=== PATIENT | female | born 1935 | race Caucasian/White ===

== ENCOUNTER 2018-05-22 19:25 | Inpatient (IN) | payer MEDICARE, OTHER ==
[~2018-05-22] VITALS: Ht 157.5 cm; Wt 73.0 kg
[2018-05-22] VITALS (11 sets, daily range): BP systolic 148–179; BP diastolic 50–66
[2018-05-22 19:49] LABS: BASOPHILS # (AUTO) 0.1 (0.0-0.1); BASOPHILS % 0.5 % (0.0-1.0); EOSINOPHILS # (AUTO) 0.1 (0.0-0.4); EOSINOPHILS % 0.5 % (0.0-6.0); HEMATOCRIT 42.9 % (34.2-44.1); HEMOGLOBIN 13.9 g/dL (12.0-16.0); LYMPHOCYTES # (AUTO) 3.4 (1.0-3.2); LYMPHOCYTES % 23.2 % (18.0-39.1); MEAN CORPUSCULAR HEMOGLOBIN 29.1 pg (28-32); MEAN CORPUSCULAR HGB CONC 32.4 g/dL (31-35); MEAN CORPUSCULAR VOLUME 89.7 fL (81-99); MONOCYTES # (AUTO) 0.6 (0.2-0.8); MONOCYTES % 4.1 % (4.4-11.3); NEUTROPHILS # (AUTO) 10.4 (2.1-6.9); NEUTROPHILS % 70.5 % (38.7-80.0); PLATELET COUNT 225 x10e3/uL (140-360); RED BLOOD COUNT 4.78 x10e6/uL (3.6-5.1)
[2018-05-22 20:02] LABS: INR 0.96; PARTIAL THROMBOPLASTIN TIME 25.2 seconds (23.8-35.5); PROTHROMBIN TIME 13.3 seconds (11.9-14.5)
[2018-05-22 20:04] LABS: BILIRUBIN,URINE NEGATIVE (NEGATIVE); CLARITY,URINE SL CLOUDY (CLEAR); COLOR,URINE YELLOW (YELLOW); KETONES,URINE NEGATIVE (NEGATIVE); LEUKOCYTE ESTERASE ,URINE 1+ (NEGATIVE); NITRITE,URINE NEGATIVE (NEGATIVE); PROTEIN,URINE DIPSTICK 1+ (NEGATIVE); URINE UROBILINOGEN 0.2 mg/dL (0.2 - 1)
[2018-05-22] MEDS ORDERED: MECLIZINE HCL25 MG PO (20:06)
[2018-05-22] MEDS ORDERED: HYDRALAZINE HCL25 MG PO (20:06)
[2018-05-22] MEDS ORDERED: LEVOTHYROXINE50 MCG PO (20:07)
[2018-05-22] MEDS ORDERED: GLIPIZIDE ER5 MG PO (20:07)
[2018-05-22] MEDS ORDERED: METOPROLOL SUCC50 MG PO (20:08)
[2018-05-22] MEDS ORDERED: METFORMIN HCL500 M2 PO (20:08)
[2018-05-22] MEDS ORDERED: CORICIDIN HBP1 EAC3 PO (20:09)
[2018-05-22] MEDS ORDERED: LANTUS 3ML100 UNITS/ SC (20:09)
--- NOTE | 2018-05-22 20:10 | Diagnostic Imaging Report ---
EXAMINATION: CHEST SINGLE (PORTABLE) COMPARISON: None INDICATION: ^sob ^[id number] ^1948 ^Y DISCUSSION: Frontal view of the chest obtained at 1946 hours. HEART AND MEDIASTINUM: The heart is mildly enlarged. The aorta is ectatic. Pulmonary vascular markings are prominent and indistinct LINES: None. LUNGS: Diffuse interstitial prominence. Patchy bibasilar airspace opacities PLEURA: There is blunting of the right lateral costophrenic angle and prominence of the minor fissure, either atelectasis or fluid BONES AND SOFT TISSUES: Degenerative changes of the spine. No focal osseous lesions. The soft tissues are normal. IMPRESSION: Cardiomegaly and CHF. Bibasilar airspace opacities may represent atelectasis or pneumonia. Small right pleural effusion. Signed by: Dr. Beulah Valadez MD on 05/22/2018 8:07 PM
[2018-05-22 20:11] LABS: ALBUMIN 3.6 g/dL (3.5-5.0); ALBUMIN/GLOBULIN RATIO 0.9 (0.8-2.0); ANION GAP 18.4 mmol/L (8-16); CALCIUM 9.3 mg/dL (8.4-10.2); CREATININE, SERUM 1.14 mg/dL (0.57-1.11); POTASSIUM 4.4 mmol/L (3.5-5.1)
[2018-05-22 20:14] LABS: BACTERIA,URINE MODERATE /HPF; EPITHELIAL CELLS,URINE MODERATE /LPF; RENAL EPITHELIAL CELLS,URINE FEW
[2018-05-22 20:17] LABS: CREATINE KINASE MB 2.7 ng/mL (0-5.0)
[2018-05-22] MEDS ORDERED: FUROSEMIDE INJ 10 MG/ML 4 ML VIAL IV NR (20:30)
[2018-05-22] MEDS ORDERED: NITROGLYCERIN 2% OINT 1 GM PKT TOP ONE (20:30)
[2018-05-22] MEDS: CEFTRIAXONE SOD 1 GM/NS 50 ML 50 ML IV SCH (20:52)
[2018-05-22] MEDS ORDERED: HYDRALAZINE HCL 20 MG/ML VIAL IV PRN (21:00)
[2018-05-22] MEDS ORDERED: DEXTROSE 50% SYRINGE 50 ML IV PRN (21:00)
[2018-05-22] MEDS ORDERED: SODIUM CHLORIDE FLUSH 10 ML SYR INJ PRN (21:00)
--- OUTSIDE RECORDS SUMMARY | 2018-05-22 21:05 | XMS REPORT ---
Author Author [facility] Address Unknown Phone Unavailable Care Team Providers Care Food Processing Scientist Name Role Phone Marco Antonio FORBES Unavailable Unavailable Payers Payer Name Policy Type Policy Number Effective Date Expiration Date Problems This patient has no known problems. Allergies, Adverse Reactions, Alerts Allergy Name Allergy Type Status Severity Reaction(s) Onset Date Inactive Date Treating Clinician Comments Penicillins DA Active [place] 2018-05-06 00:00:00 FLU VACCINE DA Active KS 2018-05-06 00:00:00 No Known Allergies DA Active U 2017-09-07 00:00:00 Medications This patient has no known medications. Results Test Description Test Time Test Comments Text Results Atomic Results Result Comments CHEST SINGLE (PORTABLE) 2018-05-22 20:06:00 [facility] [address], [place] [address] Patient Name: BRADFORD VAN MR #: [id number] : 1935 Age/Sex: 82/F Req #: [id number] Adm Physician: Ordered by: JENNIFFER FORBES MD Report #: [id number] Location: ER Room/Bed: Procedure: [id number] DX/CHEST SINGLE (PORTABLE) Exam Date: 05/22/18 Exam Time: 1949 REPORT STATUS: Signed EXAMINATION: CHEST SINGLE (PORTABLE) COMPARISON: None INDICATION: sob [id number] 1947 Y DISCUSSION: Frontal view of the chest obtained at 1946 hours. HEART AND MEDIASTINUM: The heart is mildly enlarged. The aorta is ectatic. Pulmonary vascular markings are prominent and indistinct LINES: None. LUNGS: Diffuse interstitial prominence. Patchy bibasilar airspace opacities PLEURA: There is blunting of the right lateral costophrenic angle and prominence of the minor fissure, either atelectasis or fluid BONES AND SOFT TISSUES: Degenerative changes of the spine. No focal osseous lesions. The soft tissues are normal. IMPRESSION: Cardiomegaly and CHF. Bibasilar airspace opacities may represent atelectasis or pneumonia. Small right pleural effusion. Signed by: Dr. Sarahi Valadez MD on 05/22/2018 8:07 PM Dictated By: SARAHI VALADEZ MD 06 Transcribed By: NADIRA on 05/22/182006 COPY TO: JENNIFFER FORBES MD GLUBED 2018-05-07 12:39:00 GLUBED (test code=GLUBED) 262 MG/DL 70-110 Performed by certified raymond mill operator at [facility] [id number] 08:41:00* Test Item Value Reference Range Comments GLUBED (test code=GLUBED) 183 MG/DL 70-110 Performed by certified raymond mill operator at [facility] CBC W/AUTO [id number] 08:33:00* Test Item Value Reference Range Comments WHITE BLOOD CELL (test code=WBC) 7.00 x10 3/uL 4.5-11.0 RED BLOOD CELL (test code=RBC) 3.94 x10 6/uL 3.54-5.02 HEMOGLOBIN (test code=HGB) 11.8 g/dL 11.0-15.0 HEMATOCRIT (test code=HCT) 34.4 % 33.0-45.0 MEAN CELL VOLUME (test code=MCV) 87.3 fL 81.0-99.0 MEAN CELL HGB (test code=MCH) 29.9 pg 27.0-33.0 MEAN CELL HGB CONCETRATION (test code=MCHC) 34.3 g/dL 33.0-37.0 RED CELL DISTRIBUTION WIDTH CV (test code=RDW) 12.9 % 11.5-14.5 RED CELL DISTRIBUTION WIDTH SD (test code=RDW-SD) 40.5 fL 37.0-54.0 PLATELET COUNT (test code=PLT) 149 x10 3/uL 150-400 MEAN PLATELET VOLUME (test code=MPV) 11.3 fL 7.0-9.0 NEUTROPHIL % (test code=NT%) 61.7 % 56.0-77.0 IMMATURE GRANULOCYTE % (test code=IG%) 1.3 % 0.0-2.0 LYMPHOCYTE % (test code=LY%) 28.6 % 14.0-32.0 MONOCYTE % (test code=MO%) 6.1 % 4.8-9.0 EOSINOPHIL % (test code=EO%) 1.9 % 0.3-3.7 BASOPHIL % (test code=BA%) 0.4 % 0.0-2.0 NUCLEATED RBC % (test code=NRBC%) 0.0 % 0-0 NEUTROPHIL # (test code=NT#) 4.32 x10 3/uL 2.0-7.6 IMMATURE GRANULOCYTE # (test code=IG#) 0.09 x10 3/uL 0.00-0.03 LYMPHOCYTE # (test code=LY#) 2.00 x10 3/uL 1.0-3.8 MONOCYTE # (test code=MO#) 0.43 x10 3/uL 0.1-0.8 EOSINOPHIL # (test code=EO#) 0.13 x10 3/uL 0.0-0.2 BASOPHIL # (test code=BA#) 0.03 x10 3/uL 0.0-0.2 NUCLEATED RBC # (test code=NRBC#) 0.00 x10 3/uL 0.0-0.1 MANUAL DIFF REQUIRED (test code=MDIFF) NO BASIC METABOLIC [id number] 08:16:00* Test Item Value Reference Range Comments SODIUM (test code=NA) 136 mEq/L 134-147 POTASSIUM (test code=K) 3.0 mEq/L 3.4-5.0 CHLORIDE (test code=CL) 101 mEq/L 100-108 CARBON DIOXIDE (test code=CO2) 26 mEq/L 21-33 ANION GAP (test code=GAP) 12 0-20 GLUCOSE (test code=GLU) 161 mg/dL 70-110 BLOOD UREA NITROGEN (test code=BUN) 25 mg/dL 7-18 GLOMERULAR FILTRATION RATE (test code=GFR) 60.2 70-80 Units of measure=ml/min/1.73 m2 CREATININE (test code=CREAT) 0.9 mg/dL 0.6-1.3 CALCIUM (test code=CA) 8.4 mg/dL 8.0-10.5 THYROID STIMULATING [id number] 08:16:00* Test Item Value Reference Range Comments THYROID STIMULATING HORMONE (test code=TSH) 3.32 0.42-5.47 Results in pat-International Units/mL [id number] 08:16:00* Test Item Value Reference Range Comments TROPONIN-I (test code=TROPI) 0.033 ng/mL 0.000-0.045 Negative: <=0.045 Positive: >=0.046 Correlation with serial results, other cardiac markers andclinical findings is necessary to determine the clinicalsignificance of this result. Results using different methodologies should not be comparedto one another as quantitative results may vary by method. [id number] 02:41:00* Test Item Value Reference Range Comments TROPONIN-I (test code=TROPI) 0.053 ng/mL 0.000-0.045 Negative: <=0.045 Positive: >=0.046 Correlation with serial results, other cardiac markers andclinical findings is necessary to determine the clinicalsignificance of this result. Results using different methodologies should not be comparedto one another as quantitative results may vary by method. COMMENTS: 3 troponins total (including troponin done in ED)LIPOPROTEIN LDL 2018-05-06 21:48:00* Test Item Value Reference Range Comments LIPOPROTEIN LDL (test code=LDL) 95 mg/dL 0-100 <100 [id number] NEAR OPTIMAL/ABOVE [id number] HIGH>OF=080 VERY HIGH*Guidelines provided by the National Cholesterol EducationProgram Adult Treatment Panel III [id number] 21:26:00* Test Item Value Reference Range Comments TROPONIN-I (test code=TROPI) 0.046 ng/mL 0.000-0.045 Negative: <=0.045 Positive: >=0.046 Correlation with serial results, other cardiac markers andclinical findings is necessary to determine the clinicalsignificance of this result. Results using different methodologies should not be comparedto one another as quantitative results may vary by method. COMMENTS: 3 troponins total (including troponin done in ED)[id number] 21:23:00* Test Item Value Reference Range Comments GLUBED (test code=GLUBED) 114 MG/DL 70-110 Performed by certified raymond mill operator at [facility] B-TYPE NATRIURETIC [id number] 19:03:00* Test Item Value Reference Range Comments B-TYPE NATRIURETIC PEPTIDE (test code=BNP) 13.9 PG/ML 0-100 BASIC METABOLIC [id number] 18:18:00* Test Item Value Reference Range Comments SODIUM (test code=NA) 127 mEq/L 134-147 POTASSIUM (test code=K) 3.7 mEq/L 3.4-5.0 CHLORIDE (test code=CL) 92 mEq/L 100-108 CARBON DIOXIDE (test code=CO2) 24 mEq/L 21-33 ANION GAP (test code=GAP) 15 0-20 GLUCOSE (test code=GLU) 305 mg/dL 70-110 BLOOD UREA NITROGEN (test code=BUN) 28 mg/dL 7-18 GLOMERULAR FILTRATION RATE (test code=GFR) 39.4 70-80 Units of measure=ml/min/1.73 m2 CREATININE (test code=CREAT) 1.3 mg/dL 0.6-1.3 CALCIUM (test code=CA) 9.0 mg/dL 8.0-10.5 CREATINE KINASE (CK)2018-05-06 18:18:00* Test Item Value Reference Range Comments CREATINE KINASE (CK) (test code=CK) 133 35-232 Result is in INTERNATIONAL UNITS/LITER THYROID STIMULATING [id number] 18:18:00* Test Item Value Reference Range Comments THYROID STIMULATING HORMONE (test code=TSH) 2.55 0.42-5.47 Results in pat-International Units/mL [id number] 18:18:00* Test Item Value Reference Range Comments TROPONIN-I (test code=TROPI) 0.041 ng/mL 0.000-0.045 Negative: <=0.045 Positive: >=0.046 Correlation with serial results, other cardiac markers andclinical findings is necessary to determine the clinicalsignificance of this result. Results using different methodologies should not be comparedto one another as quantitative results may vary by method. BASIC METABOLIC [id number] 18:13:00* Test Item Value Reference Range Comments SODIUM (test code=NA) 127 mEq/L 134-147 POTASSIUM (test code=K) 3.7 mEq/L 3.4-5.0 CHLORIDE (test code=CL) 92 mEq/L 100-108 CARBON DIOXIDE (test code=CO2) 24 mEq/L 21-33 ANION GAP (test code=GAP) 15 0-20 GLUCOSE (test code=GLU) 305 mg/dL 70-110 BLOOD UREA NITROGEN (test code=BUN) 28 mg/dL 7-18 GLOMERULAR FILTRATION RATE (test code=GFR) 39.4 70-80 Units of measure=ml/min/1.73 m2 CREATININE (test code=CREAT) 1.3 mg/dL 0.6-1.3 CALCIUM (test code=CA) 9.0 mg/dL 8.0-10.5 CREATINE KINASE (CK)2018-05-06 18:13:00* Test Item Value Reference Range Comments CREATINE KINASE (CK) (test code=CK) 133 35-232 Result is in INTERNATIONAL UNITS/LITER THYROID STIMULATING [id number] 18:13:00* Test Item Value Reference Range Comments THYROID STIMULATING HORMONE (test code=TSH) 0.42-5.47 [id number] 18:13:00* Test Item Value Reference Range Comments TROPONIN-I (test code=TROPI) 0.041 ng/mL 0.000-0.045 Negative: <=0.045 Positive: >=0.046 Correlation with serial results, other cardiac markers andclinical findings is necessary to determine the clinicalsignificance of this result. Results using different methodologies should not be comparedto one another as quantitative results may vary by method. URINALYSIS [id number] 18:11:00* Test Item Value Reference Range Comments UA COLOR (test code=COLU) COLORLESS YEL/STRAW UA APPEARANCE (test code=APPU) CLEAR CLEAR UA GLUCOSE DIPSTICK (test code=DGLUU) 3+ NEGATIVE UA BILIRUBIN DIPSTICK (test code=BILU) NEGATIVE NEGATIVE UA KETONE DIPSTICK (test code=KETU) NEGATIVE NEGATIVE UA SPECIFIC GRAVITY (test code=SGU) 1.003 1.005-1.030 UA BLOOD DIPSTICK (test code=JESUS) NEGATIVE NEGATIVE UA PH DIPSTICK (test code=MATTHEW) 7.0 5.0-7.0 UA PROTEIN DIPSTICK (test code=PROU) NEGATIVE NEGATIVE UA UROBILINIOGEN DIPSTICK (test code=URO) 0.2 mg/dL 0.2-1.0 UA NITRITE DIPSTICK (test code=KINSEY) NEGATIVE NEGATIVE UA LEUKOCYTE ESTERASE DIPSTICK (test code=LEUU) TRACE NEGATIVE UA WBC (test code=WBCU) 4-9 WBC/HPF 0-3 UA RBC (test code=RBCU) 0-3 RBC/HPF 0-3 UA BACTERIA (test code=BACU) NONE SEEN /HPF NONE SEEN UA SQUAMOUS CELLS (test code=SQU) 0-5 /HPF NONE SEEN COMMENTS: Clean CatchPROTHROMBIN [id number] 18:11:00* Test Item Value Reference Range Comments PROTHROMBIN TIME PATIENT (test code=PTP) 10.7 SECONDS 9.3-12.9 INTERNATIONAL NORMAL RATIO (test code=INR) 1.0 0.8-1.2 TARGET INR BY INDICATION Indication INR1. Prophylaxis of venous thrombosis 2.0 - 3.0 (orthopedic surgery), Prophylaxis of venous thrombosis (other than high-risk surgery), Treatment of Deep Vein Thrombosis/Pulmonary Embolism, Prevention of systemic embolism - Tissue heart valves, Acute Myocardial Infarction (to prevent systemic embolism), Valvular heart disease, Atrial Fibrillation, Bileaflet mechanical valve in aortic position.2. Mechanical prosthetic valves (high risk), 2.5 - 3.5 Presence of Lupus Anticoagulant or Antiphospholipid Antibodies, Prevention of systemic embolism - Acute Myocardial Infarction (to prevent recurrent infarct). THROMBOPLASTIN TIME [id number] 18:11:00* Test Item Value Reference Range Comments THROMBOPLASTIN TIME PARTIAL (test code=PTT) 29.2 Seconds 25.0-39.5 Therapeutic Range: 61.8-83.8 Sec Effective 03/25/2013 DRUGS OF ABUSE SCREEN [id number] 18:09:00* Test Item Value Reference Range Comments URN COCAINE (test code=COCAURN) NEGATIVE NEGATIVE URN CANNABINOIDS (test code=CANNABURN) NEGATIVE NEGATIVE URN AMPHETAMINE (test code=AMPHETURN) NEGATIVE NEGATIVE URN BARBITURATE (test code=BARBITURN) NEGATIVE NEGATIVE URN BENZODIAZEPINE (test code=BENZOURN) NEGATIVE NEGATIVE Cut-off value:200 ng/mL URN OPIATES (test code=OPIATURN) NEGATIVE NEGATIVE Cut-off value:2000 ng/mL URN PHENCYCLIDINE (PCP) (test code=PHENCURN) NEGATIVE NEGATIVE Cutoffs:Barbiturates 200 ng/mLBenzodiazepines 200 ng/mLTHC Cannabinoids 50 ng/mLOpiates(Morphine) 2000 ng/mLAmphetamine 1000 ng/mLCocaine 300 ng/mLPCP phencyclidine 25 ng/mL Unconfirmed screening results shouldnot be used for non-medical purposes. CBC W/AUTO [id number] 17:58:00* Test Item Value Reference Range Comments WHITE BLOOD CELL (test code=WBC) 8.54 x10 3/uL 4.5-11.0 RED BLOOD CELL (test code=RBC) 4.70 x10 6/uL 3.54-5.02 HEMOGLOBIN (test code=HGB) 14.0 g/dL 11.0-15.0 HEMATOCRIT (test code=HCT) 41.7 % 33.0-45.0 MEAN CELL VOLUME (test code=MCV) 88.7 fL 81.0-99.0 MEAN CELL HGB (test code=MCH) 29.8 pg 27.0-33.0 MEAN CELL HGB CONCETRATION (test code=MCHC) 33.6 g/dL 33.0-37.0 RED CELL DISTRIBUTION WIDTH CV (test code=RDW) 13.0 % 11.5-14.5 RED CELL DISTRIBUTION WIDTH SD (test code=RDW-SD) 42.1 fL 37.0-54.0 PLATELET COUNT (test code=PLT) 163 x10 3/uL 150-400 MEAN PLATELET VOLUME (test code=MPV) 11.4 fL 7.0-9.0 NEUTROPHIL % (test code=NT%) 70.3 % 56.0-77.0 IMMATURE GRANULOCYTE % (test code=IG%) 1.1 % 0.0-2.0 LYMPHOCYTE % (test code=LY%) 22.2 % 14.0-32.0 MONOCYTE % (test code=MO%) 4.8 % 4.8-9.0 EOSINOPHIL % (test code=EO%) 1.2 % 0.3-3.7 BASOPHIL % (test code=BA%) 0.4 % 0.0-2.0 NUCLEATED RBC % (test code=NRBC%) 0.4 % 0-0 NEUTROPHIL # (test code=NT#) 6.01 x10 3/uL 2.0-7.6 IMMATURE GRANULOCYTE # (test code=IG#) 0.09 x10 3/uL 0.00-0.03 LYMPHOCYTE # (test code=LY#) 1.90 x10 3/uL 1.0-3.8 MONOCYTE # (test code=MO#) 0.41 x10 3/uL 0.1-0.8 EOSINOPHIL # (test code=EO#) 0.10 x10 3/uL 0.0-0.2 BASOPHIL # (test code=BA#) 0.03 x10 3/uL 0.0-0.2 NUCLEATED RBC # (test code=NRBC#) 0.03 x10 3/uL 0.0-0.1 MANUAL DIFF REQUIRED (test code=MDIFF) NO - CT HEAD/BRAIN W/O [id number] 17:01:00 Name: BRADFORD VAN [facility] : 1935 Age/S: 82 / F [address] [place] [address] Unit #: [id number] Loc: [place] [address] Phys: Leroy Dang DO Acct: [id number] Dis Date: Status: REG ER PHONE #: [phone] Exam Date: 05/06/2018 1642 FAX #: [phone] Reason: Syncope EXAMS: CPT CODE: [id number] CT HEAD/BRAIN W/O CONT [address] HEAD INDICATION: Syncope. TECHNIQUE: Unenhanced CT was performed from the skull vertex to the foramen magnum with axial, coronal and sagittal reconstructions. Radiation dose length product 420 mGy-cm. COMPARISONS: CT brain 01/23/2018 FINDINGS: The paranasal sinuses are clear as visualized. The mastoid air cells and middle ears appear clear as visualized. There is a moderate burden of atherosclerotic vascular calcification of the intracranial arteries. There is no acute depressed skull fracture. There is a stable mild burden of chronic small vessel ischemic disease hypodense lesions in the frontoparietal white matter. There is moderate generalized brain parenchymal volume loss. The cerebral ventricles are normal caliber. There is no cerebral mass effect, midline shift, intracranial hemorrhage or acute large vessel territory cerebral cortical edema. IMPRESSION: 1. There is no acute intracranial process. 2. There is a stable mild burden of chronic small vessel ischemic disease hypodense lesions in the frontoparietal white matter. There is stable moderate generalized brain parenchymal volume loss. Electronically Signed by Skye Bermeo on 05/06 at 1701 Reported and signed by: Ariel Bermeo D.O. CC: Leroy Dang DO; Blue Sánchez MD [place] hnologist:RT Hitesh(R)(CT) CTDI: DLP: Trnscb Date/T iliana: 05/06/2018 (1701) [email or web address] Orig Print D/T: S: 05/06 (7096) CTDI: DLP: PAGE 1 Si gned Report - XR CHEST 1 [id number] 16:26:00 FAX: Leroy Pérez DO [phone] [place]: St: REG FAX: Blue Montano MD [phone] Name: BRADFORD VAN [facility] : 1935 Age/S: 82/F [address] [place] [address] Blvd Unit #: [id number] Loc: [place] [address] Phys: Leroy Dang DO Acct: [id number] Dis Date: Status: REG ER PHONE #: [phone] Exam Date: 05/06/2018 1620 FAX #: [phone] Reason: near syncope EXAMS: CPT CODE: [id number] XR CHEST 1 V 95028 SINGLE VIEW RADIOGRAPH CHEST INDICATION: near syn cope. TECHNIQUE: A single view frontal radiograph of the chest was obtained. COMPARISONS: Chest x-ray 01/23/2018 FINDI NGS: There is no acute osseous fracture or dislocation. There is n o subdiaphragmatic free gas. The cardiomediastinal size and contour are normal. There is mild atherosclerotic vascular calcification o f the aorta. There is no pneumothorax, pleural effusion or organiz ed pneumonia. There is a calcified granuloma in the medial right lung bas e. IMPRESSION: 1. No acute cardiopulmonary pr ocess. at 7330 Re ported and signed by: Ariel Bermeo D.O. CC: Leroy Dang DO; Blue Sánchez MD Technologist: RT Bhavya(R) Trnscrd Date/Time/By: 05/06/2018 (0319) : By: [email or web address] Orig Print D/T: S: 05/06/2018 (3535) PAGE 1 Signed Report
[2018-05-22] MEDS ORDERED: MECLIZINE HCL 12.5 MG TAB PO SCH (21:15)
[2018-05-22] MEDS ORDERED: ASPIRIN 81 MG CHEW TAB PO ONE (21:15)
[2018-05-22] MEDS: INSULIN REGULAR, HUMAN 100 UNIT/1 ML 3ML VIAL SQ SCH (22:15)
[2018-05-23] VITALS (45 sets, daily range): BP systolic 101–208; BP diastolic 40–134
[2018-05-23 04:50] LABS: BASOPHILS % 0.3 % (0.0-1.0); EOSINOPHILS % 0.3 % (0.0-6.0); HEMATOCRIT 36.5 % (34.2-44.1); HEMOGLOBIN 12.3 g/dL (12.0-16.0); LYMPHOCYTES # (AUTO) 2.2 (1.0-3.2); MEAN CORPUSCULAR HEMOGLOBIN 29.7 pg (28-32); MEAN CORPUSCULAR HGB CONC 33.7 g/dL (31-35); MEAN CORPUSCULAR VOLUME 88.2 fL (81-99); MONOCYTES # (AUTO) 0.7 (0.2-0.8); NEUTROPHILS # (AUTO) 8.6 (2.1-6.9); NEUTROPHILS % 73.5 % (38.7-80.0); PLATELET COUNT 219 x10e3/uL (140-360); RED BLOOD COUNT 4.14 x10e6/uL (3.6-5.1)
[2018-05-23] MEDS: LEVOTHYROXINE SODIUM 50 MCG TAB PO SCH (05:15)
[2018-05-23 05:18] LABS: CREATINE KINASE MB 1.6 ng/mL (0-5.0)
[2018-05-23 05:35] LABS: ALBUMIN 3.2 g/dL (3.5-5.0); ALBUMIN/GLOBULIN RATIO 0.9 (0.8-2.0); ANION GAP 13.8 mmol/L (8-16); CALCIUM 8.8 mg/dL (8.4-10.2); CREATININE, SERUM 1.05 mg/dL (0.57-1.11); POTASSIUM 3.8 mmol/L (3.5-5.1)
[2018-05-23] MEDS: INSULIN REGULAR, HUMAN 100 UNIT/1 ML 3ML VIAL SQ SCH ×4 (07:30→21:00)
[2018-05-23] MEDS: HYDRALAZINE HCL 25 MG TAB PO SCH ×2 (09:00→17:00)
[2018-05-23] MEDS ORDERED: DEXTROSE 50% SYRINGE 50 ML IV PRN (10:15)
[2018-05-23] MEDS ORDERED: ONDANSETRON HCL INJ 2MG/ML 2ML 2 MG/ML VIAL IV PRN (10:45)
[2018-05-23] MEDS ORDERED: ACETAMINOPHEN 325 MG TAB PO PRN (10:45)
[2018-05-23] MEDS ORDERED: SCOPOLAMINE 1.5 MG PATCH TOP ONE (10:45)
[2018-05-23] MEDS ORDERED: MECLIZINE HCL 12.5 MG TAB PO PRN (11:00)
[2018-05-23] MEDS ORDERED: MIDAZOLAM HCL 2 MG/2 ML VIAL ONE (11:29)
[2018-05-23] MEDS ORDERED: SODIUM CHLORIDE 0.9% 500ML 0 ML ONE (11:30)
[2018-05-23] MEDS ORDERED: LIDOCAINE HCL 2% LOCAL 20 ML VIAL ONE (11:30)
[2018-05-23] MEDS ORDERED: SODIUM CHLORIDE 0.9% 1000ML 2,000 ML ONE (11:30)
[2018-05-23] MEDS ORDERED: BACITRACIN 50,000 UNIT VIAL ONE (11:30)
[2018-05-23] MEDS ORDERED: FENTANYL CITRATE/PF 100MCG/2 ML INJ ONE (11:30)
[2018-05-23] MEDS ORDERED: SODIUM BICARBONATE 8.4% SYRING 0 ML ONE (11:31)
--- NOTE | 2018-05-23 12:34 | History and Physical ---
CHIEF COMPLAINT: Dizziness. HISTORY OF PRESENT ILLNESS: This is an 82-year-old female with past medical history of hypertension, type 2 diabetes, hypothyroidism, reports CKD, history of vertigo ongoing for more than one year now, comes into the ED with complaints of worsening dizziness upon movement as well as shortness of breath. According to the reports, the patient had a heart rate in the 30s on arrival to ER. Currently, her heart rate is 39 concerning for third-degree heart block. Cardiology was consulted. The patient was then admitted to the ICU. The patient was taking some beta-blockers at home as well. She reports to me that she has been [facility], had a workup for her dizziness, found to have had a negative MRI of the brain. At that time, she was discharged, was told she was doing well, had no other issues. She now reports with dizziness that has been ongoing since her discharge. She also reports having dizziness for more than a year now, has verbalized with her PCP, but according to her has not done anything about it. The patient seen and evaluated at bedside on the medical floor, currently in the ICU. Currently, she is doing well, she has several family members at bedside. Her blood pressure is stable, heart rate is 39 during my evaluation. REVIEW OF SYSTEMS: Pertinent positives: Dizziness, lightheadedness, shortness of breath. Pertinent negatives: Denies any chest pain, palpitation, nausea, vomiting, diarrhea, dysuria, hematuria, frequency, urgency, cough, congestion, fever, or any other complaints. The rest of a 14-review of systems have been reviewed with the patient and are negative. ALLERGIES: FLU VACCINE, PENICILLIN. HOME MEDICATIONS: She is on hydralazine 100 mg p.o. b.i.d., levothyroxine 50 mg daily, meclizine 25 mg p.o. t.i.d., glipizide 10 mg b.i.d., metformin 500 mg p.o. b.i.d., metoprolol 200 mg daily, Lantus 35 units subcu at night. PAST MEDICAL HISTORY: Hypertension, diabetes, hypothyroidism, CKD, vertigo. PAST SURGICAL HISTORY: Appendectomy. FAMILY HISTORY: Hypertension and diabetes. SOCIAL HISTORY: Never smoked. No drugs. No alcohol. She has children. PHYSICAL EXAMINATION: VITAL SIGNS: Temperature is 98.3, pulse is 38, respiratory rate is 14, blood pressure 162/57, pulse ox is 95% on 2 L nasal cannula. GENERAL: Not in acute distress. Alert and oriented x3. Cooperative on examination. HEENT: Head is normocephalic and atraumatic. Eyes; pupils are equal, round, and reactive to light bilaterally. Extraocular movements are intact bilaterally. Throat, no evidence of erythema or exudates in the posterior pharynx. Has poor dentition. NECK: Supple. Good range of motion. PULMONARY: Clear to auscultation bilaterally. No wheezing, no rales, no rhonchi, no crackles appreciated. CARDIOVASCULAR: Positive S1, S2. No murmurs, rubs, or gallops appreciated. ABDOMEN: Soft, nondistended, and nontender to palpation. Bowel sounds present. MUSCULOSKELETAL: Strength is 5/5 throughout. No evidence of any muscle deficits on examination. No weakness appreciated. NEUROLOGICAL: Cranial nerves 2 through 12 are grossly intact. No evidence of any neurological deficits on exam. SKIN: Intact. Warm to touch. Good cap refill. PSYCHIATRIC: Normal affect and mood. EXTREMITIES: No edema. Good range of motion throughout. LABORATORY DATA: Lab findings show white count is 11.7, hemoglobin 12, hematocrit 36, platelets of 219. Coagulation; PT 13, INR 0.96, PTT 25. Chemistry; sodium 136, potassium 3.8, chloride 106, bicarb 20, anion gap of 13, BUN is 24, creatinine is 1, glucose is 135, calcium is 8.8. Total bilirubin is 0.8, AST 15, ALT 25, alkaline phosphatase 83. CK 33. Troponin is 0.014. Her BNP is 1150. Albumin was 3.2. Urinalysis, probable UTI. MICROBIOLOGY: Urine cultures are pending. IMAGING STUDIES: Chest x-ray shows cardiomegaly with CHF. Bibasilar airspace opacities, may represent atelectasis or pneumonia. IMPRESSION: 1. Lightheadedness and dizziness secondary to bradycardia, likely third-degree heart block, on cardiac telemetry and EKG. 2. Exacerbation of congestive heart failure with likely diastolic dysfunction. 3. Urinary tract infection. 4. Type 2 diabetes. 5. Hypertension. 6. Medically debilitated and generalized weakness. PLAN: At this time, I am going to get the records from [facility]. She had a recent MRI according to the family and the patient at bedside and I was told that it was negative. I discussed with the nurse about getting records from [facility] especially the MRI report. The patient is not aware of her heart rate in the past, currently heart rate is in the 30s, which is likely leading to underlying dizziness and vertigo. There is no evidence of any stroke-like symptoms on examination. I will go ahead and get a CT of the brain since it was not performed in the ER. Cardiology has since been consulted, she will be n.p.o. and likely get a pacemaker later this afternoon. She does also have a probable UTI, she is on IV Rocephin, monitor urine cultures. I will also put her on Lasix for underlying CHF with pulmonary edema seen on chest x-ray. Cardiology has been consulted for that as well. In relation to her diabetes, she is on insulin sliding scale, Accu-Cheks, A1c. In relation to her blood pressure, we are going to continue with hydralazine only as that will help with raising up her heart rate as well. We will put her on prophylaxis with Lovenox starting tomorrow as today she will have a pacer. PT, OT abraham. Continue in the ICU stay due to low heart rate. I explained everything to the family at bedside, nurse was present and they verbalized understanding and agree with plan of care. At this time, we will await for pacemaker placement and monitor her very closely in the ICU. I spent more than 40 minutes of critical care time on this case. MD DIONNA Hough/ANGE /[id number]
[2018-05-23 13:27] LABS: CREATINE KINASE MB 1.5 ng/mL (0-5.0)
[2018-05-23] MEDS: FUROSEMIDE INJ 10 MG/ML 4 ML VIAL IV SCH ×2 (13:48→17:00)
--- NOTE | 2018-05-23 16:40 | NUR ---
PT LIVES ALONE IN A HOUSE IN [place] IN[place]ENDENT PRIOR TO ADMIT PT DRIVES HAS A GLUCOMETER AND IS ON INSULIN AND PILLS SUPPORTIVE FAMILY DTR KRISTI BOWSER IS TAKING OFF WORK A WEEK TO STAY WITH PT UPON DISCHARGE SCHEDULED FOR PACEMAKER IN AM GAVE PT MY CARD FOR QUESTIONS/CONCERNS
[2018-05-23] MEDS ORDERED: CEFAZOLIN SOD 1 GM VIAL ONE (17:45)
[2018-05-23] MEDS ORDERED: VANCOMYCIN 1GM/NS 250 ML 250 ML ONE (17:45)
[2018-05-23] MEDS ORDERED: SODIUM CHLORIDE 0.9% 100 ML 100 ML ONE (17:45)
[2018-05-23] MEDS ORDERED: HYDRALAZINE HCL 20 MG/ML VIAL ONE (18:16)
--- NOTE | 2018-05-23 18:22 | Consultation ---
DATE OF CONSULTATION: 05/23/2018 Cardiology Consult Note REASON FOR CONSULT: Bradycardia, dizziness. CHIEF COMPLAINT: Dizziness. HISTORY OF PRESENT ILLNESS: An 82-year-old female with past medical history of hypertension, diabetes, hypothyroidism, vertigo and dizziness for about a year. No syncope or palpitations. No previous cardiovascular history, presenting to the ER with severe dizziness, was found to have a heart rate in the 30s with high-grade AV block. Denies any chest pain or heart failure symptoms. REVIEW OF SYSTEMS: As above, otherwise negative. PAST MEDICAL HISTORY: As per the HPI. OUTPATIENT MEDICATIONS: Reviewed. As noted in the MAR. FAMILY HISTORY: Noncontributory. SOCIAL HISTORY: She does not smoke, drink, or abuse drugs. OBJECTIVE: VITAL SIGNS: Temperature 98.3, pulse 38, respiratory rate 21, blood pressure 162/53, saturating 97% on 2 L nasal cannula. GENERAL: Elderly female in no acute distress, well developed, well nourished. CARDIOVASCULAR: Bradycardic, but regular. No murmurs, rubs, or gallops. LUNGS: Clear to auscultation bilaterally. ABDOMEN: Obese, soft, nontender, nondistended. NEURO AND PSYCH: Alert and oriented to person, place, and time. Normal affect. INPATIENT MEDICATIONS: Reviewed. LABORATORY DATA: Reviewed. IMAGING DATA: Reviewed. Chest x-ray shows mild cardiomegaly, small right pleural effusion. ASSESSMENT: 1. Third-degree atrioventricular block. 2. Hypertension. 3. Hyperlipidemia. PLAN: Plan for permanent pacemaker later today. The patient is hemodynamically stable and does not require temporary pacer. Echocardiogram showed preserved LV ejection fraction. Thank you for this consult. We will continue to follow. MD VITOR Fernando/MODL /[id number]
--- NOTE | 2018-05-23 18:43 | NUR ---
patient was in third degree heart block this morning. dental laboratory technology teacher took patient to procedure for permanent pacemaker. vss. pt npo for pacemaker. can resume diet per md orders. family at bedside. java manager spoke with patient this morning. faxed request to [facility] for medical records as pt was there 3/12 overnight for obs. also patient states these symptoms originally began june 2017. will continue to monitor patient status.
[2018-05-23] MEDS: CEFTRIAXONE SOD 1 GM/NS 50 ML 50 ML IV SCH (20:45)
--- NOTE | 2018-05-23 21:14 | Diagnostic Imaging Report ---
CT BRAIN WO HISTORY: Dizziness COMPARISON: None. Technique: Noncontrast axial scans were obtained from skull base to the vertex. Coronal and sagittal reconstructions obtained from the axial data. One or more of the following dose reduction techniques were used: Automated exposure control, adjustment of the mA and/or kV according to patient size, and/or utilization of iterative reconstruction technique. DISCUSSION: Scalp/Skull: Unremarkable. Brain sulci: Mildly prominent. Ventricles: Compensatory dilatation. Extra-axial spaces: No masses or fluid collections. Carotid siphon calcifications are present. Parenchyma: Mild bilateral deep white matter hypodensity is likely chronic microvascular ischemic change. Otherwise, no masses, hemorrhage, or large vascular territory acute infarct. Dural sinuses: No abnormal densities. Sellar/Suprasellar region: Intact. Skull base: Intact. Incidental findings: Both ocular lenses are thinned. IMPRESSION: 1. No acute intracranial abnormalities. 2. Mild supratentorial chronic microvascular ischemic change. Mild generalized cerebral volume loss. Signed by: Dr. Jeffry Melton M.D. on 05/23/2018 9:11 PM
[2018-05-24] VITALS (18 sets, daily range): BP systolic 105–152; BP diastolic 56–65
--- NOTE | 2018-05-24 03:15 | Operative Report ---
DATE OF PROCEDURE: 05/23/2018 SURGEON: Isauro Giraldo MD PREPROCEDURE DIAGNOSES: 1. High-degree atrioventricular block. 2. Severe symptomatic bradycardia. 3. Non-reversible bradycardia. PROCEDURE PERFORMED: Dual-chamber permanent pacemaker placement with moderate sedation for 50 minutes with 1 of Versed and 50 of fentanyl while O2 saturation and blood pressure were being monitored by me and the circulating nurse. PROCEDURE IN DETAIL: The patient was brought into the EP lab in fasting state. She was prepped and draped in sterile fashion. Cautious sedation was administered. Venogram was administered. Vancomycin was given. A 3 cm skin incision was made. Subcutaneous tissue and pocket were formed. Two guidewires were inserted inside the left axillary vein using modified Seldinger technique. No complications. Pacing lead advanced to the artery apex. The ratio was 0.5, impedence 1000 ohms and other pacing lead advanced to the right atrial appendage both leads sutured to the fascia using 0 silk irrigated with antibiotic solution and leads were connected to [employer] dual-chamber pacemaker serial #[id number]. Placed inside the pocket and sutured to the fascia with 0 silk subcutaneous tissue approximated with 2-0 Vicryl in running 2 layers. Skin was approximated using 4-0 Vicryl and Dermabond. The patient tolerated the procedure with no complications at the conclusion of the dual-chamber permanent pacemaker placement. Clinical follow up in 2 weeks. MD VALERI Griffiths/MODL /[id number]
[2018-05-24 05:11] LABS: BASOPHILS % 0.2 % (0.0-1.0); EOSINOPHILS # (AUTO) 0.1 (0.0-0.4); HEMOGLOBIN 12.7 g/dL (12.0-16.0); LYMPHOCYTES # (AUTO) 1.6 (1.0-3.2); MEAN CORPUSCULAR HEMOGLOBIN 30.2 pg (28-32); MEAN CORPUSCULAR HGB CONC 34.3 g/dL (31-35); MEAN CORPUSCULAR VOLUME 87.9 fL (81-99); MONOCYTES # (AUTO) 0.5 (0.2-0.8); MONOCYTES % 5.9 % (4.4-11.3); NEUTROPHILS # (AUTO) 5.8 (2.1-6.9); PLATELET COUNT 174 x10e3/uL (140-360); RED BLOOD COUNT 4.21 x10e6/uL (3.6-5.1)
[2018-05-24 05:28] LABS: ANION GAP 13.8 mmol/L (8-16); CALCIUM 8.6 mg/dL (8.4-10.2); CREATININE, SERUM 1.2 mg/dL (0.57-1.11); POTASSIUM 3.8 mmol/L (3.5-5.1)
[2018-05-24] MEDS: LEVOTHYROXINE SODIUM 50 MCG TAB PO SCH (06:27)
--- NOTE | 2018-05-24 06:59 | NUR ---
Bedside report rec'd. Patient resting, supine in bed watching TV.
[2018-05-24] MEDS: INSULIN REGULAR, HUMAN 100 UNIT/1 ML 3ML VIAL SQ SCH ×4 (07:31→21:00)
[2018-05-24] MEDS: FUROSEMIDE INJ 10 MG/ML 4 ML VIAL IV SCH ×2 (08:54→17:54)
[2018-05-24] MEDS: HYDRALAZINE HCL 25 MG TAB PO SCH ×2 (08:54→17:30)
--- NOTE | 2018-05-24 12:16 | Progress Note ---
DATE: Internal Medicine Progress Note. SUBJECTIVE: The patient is doing well with no complaints. She had a pacer placed in on yesterday. Current heart rate is 96. She denies any vertigo or any dizziness at this time. She reports feeling much better now with no other issues. PHYSICAL EXAMINATION: VITAL SIGNS: Temperature 97.9, pulse is 97 currently on the monitor, respiratory rate is 15, blood pressure 138/58, pulse ox 99% on 2 L nasal cannula. LAB FINDINGS: Show white count 8, hemoglobin 12, hematocrit 37; platelets of 174. Coagulations are normal. Chemistry, sodium 137, potassium 3.8, chloride 105, bicarb 22, anion gap of 13, BUN 24, creatinine is 1.2, glucose is 191, calcium is 8.6, TSH is 3.1. Microbiology; urine cultures are pending. IMAGING STUDIES: CT brain was performed, which shows no acute intracranial abnormalities. PHYSICAL EXAMINATION: GENERAL: Not in acute distress. Alert and oriented x3. Cooperative on examination. HEENT: Head is normocephalic and atraumatic. Eyes, pupils are equal, round, reactive to light bilaterally. Extraocular movements are intact bilaterally. NECK: Supple. Good range of motion. Throat, no evidence of erythema or exudates in the posterior pharynx. Has poor dentition. PULMONARY: Clear to auscultation bilaterally. No wheezing, rales or rhonchi. No crackles appreciated. CARDIOVASCULAR: Positive S1, S2. No murmurs, rubs, or gallops appreciated. ABDOMEN: Soft, nondistended, and nontender to palpation. Bowel sounds present. MUSCULOSKELETAL: Strength is 5/5 throughout. No evidence of any muscle deficits on examination. No weakness appreciated. NEUROLOGICAL: Cranial nerves II through XII are grossly intact. No evidence of any neurological deficits on exam. SKIN: Intact. Warm to touch. Good cap refill. PSYCHIATRIC: Normal affect and mood. EXTREMITIES: No edema. Good range of motion throughout. IMPRESSION: 1. Lightheadedness and dizziness, diagnosed with vertigo likely secondary to bradycardia and third-degree heart block, now status post pacemaker placement with much improvement with no evidence of any dizziness. 2. Exacerbation of congestive heart failure with likely diastolic dysfunction. 3. Urinary tract infection. 4. Type 2 diabetes. 5. Hypertension. 6. Medically debilitated, weakness. PLAN: At this time, pacemaker has been placed. This is postop day #1. She is currently doing well with no complaints. Her heart rate is well controlled and monitored very closely. She is currently in ICU, can be transferred to [facility] on tele. Cardiology and EP are following very closely. She is on cardiac medications, diuretics. Urine cultures are pending. She is on IV antibiotics. Her glucose is controlled. She is on insulin sliding scale. Blood pressure is well managed and controlled. Continue to work on PT and OT. She is on Lovenox for DVT prophylaxis. We will obtain new records from [facility]. I spent more than 35 minutes of critical care time on this case. The patient continues to be in ICU at this time. MD DIONNA Hough/ANGE /[id number]
--- NOTE | 2018-05-24 12:56 | NUR ---
Per Keanu Johnson and phylicia Tucker to transfer patient to Med Surg with telemetry.
--- NOTE | 2018-05-24 13:06 | NUR ---
Called Dr Johnson to inform him of the CT only from [place] and patient mistaken that she had an MRI. Made aware patient is moving to Room 112.
--- NOTE | 2018-05-24 15:00 | NUR ---
received to rm [id number] no distress noted, updated on poc vocied understanding, denies pain at this time, oriented to rm voiced understanding, call light in reach will continue to monitor
[2018-05-24] MEDS: HYDROCODONE/APAP 5MG-325MG TAB PO PRN (16:20)
[2018-05-24] MEDS: ENOXAPARIN SOD INJ 40 MG/0.4 ML SYR SC SCH (17:30)
--- NOTE | 2018-05-24 17:57 | Progress Note ---
DATE: Cardiology Progress Note SUBJECTIVE: The patient is feeling well, status post pacemaker placement, mild pain at surgical site. No chest pain, shortness of breath. Reports mild fatigue. OBJECTIVE: VITAL SIGNS: Temperature is 98.4, heart rate is 95, respirations 17, blood pressure is 116/63, and oxygen saturation 99% room air. GENERAL: She is well-appearing, well-built, in no apparent distress. CARDIOVASCULAR: Regular rate and rhythm. LUNGS: Clear to auscultation. ABDOMEN: Soft and nontender. NEUROLOGIC: No focal deficits noted. MEDICATIONS: Reviewed. LABORATORY: Reviewed. TELEMETRY: Monitoring data reviewed. Pacemaker interrogation revealed normal function. ASSESSMENT: 1. Complete heart block, status post permanent pacemaker implantation. 2. Hypertension. 3. Hyperlipidemia. RECOMMENDATIONS: Continue current cardiovascular medications. The pacemaker is functional. Appreciate electrophysiology assistance. Continue to follow closely. DO SHI Chavez/MODL /[id number]
[2018-05-24] MEDS ORDERED: SODIUM CHLORIDE 0.9% 250ML 250 ML ONE (20:50)
[2018-05-24] MEDS: CEFTRIAXONE SOD 1 GM/NS 50 ML 50 ML IV SCH (21:12)
[2018-05-25] VITALS (8 sets, daily range): BP systolic 128–183; BP diastolic 56–70
[2018-05-25] MEDS: LEVOTHYROXINE SODIUM 50 MCG TAB PO SCH (05:38)
[2018-05-25] MEDS: INSULIN REGULAR, HUMAN 100 UNIT/1 ML 3ML VIAL SQ SCH ×4 (09:10→21:00)
[2018-05-25] MEDS: HYDROCODONE/APAP 5MG-325MG TAB PO PRN ×2 (09:15→15:10)
[2018-05-25] MEDS: HYDRALAZINE HCL 25 MG TAB PO SCH ×2 (09:20→17:20)
[2018-05-25] MEDS: FUROSEMIDE INJ 10 MG/ML 4 ML VIAL IV SCH ×2 (09:20→17:20)
--- NOTE | 2018-05-25 13:36 | Progress Note ---
DATE: 05/25/2018 Medicine Progress Note SUBJECTIVE: The patient is doing well. Has minimal dizziness. No other complaints at this time. OBJECTIVE: VITAL SIGNS: Temperature 96.8, pulse 76, respiratory rate is 18, blood pressure 152/66, and pulse ox 96% on room air. GENERAL: Not in acute distress. Alert and oriented x3. Cooperative on examination. HEENT: Head is normocephalic and atraumatic. Eyes; pupils are equal, round, and reactive to light bilaterally. Extraocular movements are intact bilaterally. Throat, no evidence of erythema or exudates in the posterior pharynx. Has poor dentition. NECK: Supple. Good range of motion. PULMONARY: Clear to auscultation bilaterally. No wheezing, no rales, no rhonchi, no crackles appreciated. CARDIOVASCULAR: Positive S1, S2. No murmurs, rubs, or gallops appreciated. ABDOMEN: Soft, nondistended, and nontender to palpation. Bowel sounds present. MUSCULOSKELETAL: Strength is 5/5 throughout. No evidence of any muscle deficits on examination. No weakness appreciated. NEUROLOGICAL: Cranial nerves II through XII grossly intact. No evidence of any neurological deficits on exam. SKIN: Intact. Warm to touch. Good cap refill. PSYCHIATRIC: Normal affect and mood. EXTREMITIES: No edema. Good range of motion throughout. LAB FINDINGS: Hemoglobin 12.7, hematocrit 37, and platelets of 174. Coagulation normal. Chemistries, none. IMPRESSION: 1. Lightheadedness with dizziness with vertigo secondary to bradycardia with third-degree heart block, status post pacemaker placement performed on 05/23/2018 by EP. 2. Congestive heart failure exacerbation with diastolic dysfunction. 3. Urinary tract infection. 4. Hypertension. 5. Type 2 diabetes. 6. Medically debilitated. PLAN: At this time, her dizziness seems to have resolved after placement of the pacemaker. She is on meclizine and scopolamine patch. She is on IV diuretics. She does not have UTI according to the urine culture. Insulin sliding scale, Accu-Cheks. Blood pressure stable. Continue with Lovenox for DVT prophylaxis. Likely discharge home tomorrow. MD DIONNA Hough/MODL /[id number]
--- NOTE | 2018-05-25 16:41 | Progress Note ---
DATE: Cardiology Progress Note SUBJECTIVE: The patient reports pain at the pacemaker implantation site. No chest pain or shortness of breath. OBJECTIVE: VITAL SIGNS: Temperature is 96.2, heart rate is 76, respirations are 18, blood pressure is 153/66, oxygen saturation 96% on room air. GENERAL: Well appearing, in no apparent distress. CARDIOVASCULAR: Regular rate and rhythm. LUNGS: Clear to auscultation. ABDOMEN: Soft, nontender. NEUROLOGIC: No focal deficits noted. LABORATORY DATA: Reviewed. MEDICATIONS: Reviewed. TELEMETRY: Monitor revealed ventricular paced rhythm. IMPRESSION: 1. Complete heart block, status post pacemaker. 2. Hypertension. 3. Hyperlipidemia. RECOMMENDATIONS: Continue current cardiovascular medications. Normal function of the pacemaker is noted. Appreciate electrophysiology assistance. Continue current cardiovascular medications. Paco Tucker DO BM/MODL /[id number]
[2018-05-25] MEDS: ENOXAPARIN SOD INJ 40 MG/0.4 ML SYR SC SCH (17:20)
[2018-05-25] MEDS: CEFTRIAXONE SOD 1 GM/NS 50 ML 50 ML IV SCH (21:58)
[2018-05-26 00:30] VITALS: BP 132/62
[2018-05-26 04:44] VITALS: BP 113/66
[2018-05-26] MEDS: LEVOTHYROXINE SODIUM 50 MCG TAB PO SCH (06:00)
[2018-05-26 06:34] LABS: BASOPHILS % 0.4 % (0.0-1.0); EOSINOPHILS # (AUTO) 0.2 (0.0-0.4); EOSINOPHILS % 2.7 % (0.0-6.0); HEMATOCRIT 38.4 % (34.2-44.1); HEMOGLOBIN 12.9 g/dL (12.0-16.0); LYMPHOCYTES # (AUTO) 2.1 (1.0-3.2); LYMPHOCYTES % 30.6 % (18.0-39.1); MEAN CORPUSCULAR HEMOGLOBIN 29.6 pg (28-32); MEAN CORPUSCULAR HGB CONC 33.6 g/dL (31-35); MEAN CORPUSCULAR VOLUME 88.1 fL (81-99); MONOCYTES # (AUTO) 0.5 (0.2-0.8); MONOCYTES % 7.2 % (4.4-11.3); NEUTROPHILS % 57.9 % (38.7-80.0); PLATELET COUNT 229 x10e3/uL (140-360); RED BLOOD COUNT 4.36 x10e6/uL (3.6-5.1); RED CELL DISTRIBUTION WIDTH 13.7 % (11.7-14.4)
[2018-05-26 06:46] LABS: ANION GAP 13.9 mmol/L (8-16); CALCIUM 9.5 mg/dL (8.4-10.2); CREATININE, SERUM 1.19 mg/dL (0.57-1.11); POTASSIUM 3.9 mmol/L (3.5-5.1)
--- NOTE | 2018-05-26 07:14 | NUR ---
REPORT GIVEN TO ONCOMING NURSE.WALKING ROUNDS MADE.PT RESTING IN BED WITH NO S/S OF DISTRESS.
--- NOTE | 2018-05-26 07:34 | NUR ---
Received patient awake in bed, no signs of distress at this time. Call light in reach, will continue to monitor.
[2018-05-26 07:48] VITALS: BP 144/69
[2018-05-26] MEDS: FUROSEMIDE INJ 10 MG/ML 4 ML VIAL IV SCH (09:03)
[2018-05-26] MEDS: HYDRALAZINE HCL 25 MG TAB PO SCH (09:03)
[2018-05-26] MEDS: INSULIN REGULAR, HUMAN 100 UNIT/1 ML 3ML VIAL SQ SCH ×2 (09:06→12:42)
[2018-05-26 10:22] VITALS: BP 144/69
[2018-05-26] MEDS ORDERED: DOXYCYCLINE HY100 MG PO (12:16)
[2018-05-26 12:30] VITALS: BP 126/67
--- NOTE | 2018-05-26 13:35 | NUR ---
Removed patients IV. Catheter tip intact and pressure dressing applied.
--- NOTE | 2018-05-26 14:22 | NUR ---
Patient discharged from facility. Patient gathered all personal belongings, discharge information, and follow up information. Left unit in wheelchair and went home via private auto. No signs of distress leaving facility.
--- NOTE | 2018-05-27 10:47 | Discharge Summary ---
FINAL DISCHARGE DIAGNOSES: 1. Dizziness secondary to third-degree heart block, status post pacemaker placement, 05/23/2018 by EP, now resolved. 2. Congestive heart failure exacerbation with diastolic dysfunction. 3. Hypertension. 4. Type 2 diabetes. 5. Generalized weakness, resolved. CONSULTANTS: EP and Cardiology. PHYSICAL EXAMINATION: VITAL SIGNS: Temperature is 97.1, pulse 89, respiratory rate is 18, blood pressure is 144/69, pulse ox 97% on room air. LABORATORY DATA: Lab findings show white count 6.9, hemoglobin 12.9, hematocrit 38, platelets of 229. Coagulations were normal. Chemistry; sodium 139, potassium 3.9, chloride 102, bicarb 27, anion gap of 13, BUN is 27, creatinine is 1.19, glucose is 171, calcium is 9.5, T-bili 1.8, AST 16, ALT 25. Troponins were negative x3. BNP 1150. Albumin 3.2. TSH is 3.1. Urinalysis negative for UTI. Urine cultures negative. IMAGING STUDIES: Chest x-ray just shows some mild right pleural effusion. CT brain was negative. HOSPITAL COURSE: This is an 82-year-old female, who came into the ED with underlying dizziness and concerns for her vertigo. The patient reports she has been dealing with this particular type of dizziness for more than one year now. She has been sent by her PCP to an ENT specialist to be followed up as an outpatient. She now reports with worsening dizziness, found to have a third-degree heart block on EKG, which Cardiology was consulted. EP was consulted and a pacemaker was installed on 05/23/2018 by EP. Postprocedurally, the patient did very well with no complaints. While in the hospital, the patient was given IV diuretics for CHF exacerbation. The patient maintained on telemetry with no issues. The heart rate maintained and controlled with no other issues. The patient did not have a UTI. Her urine culture was found to be negative. Her blood pressure and diabetes are well controlled while here. She did work with PT and OT. She did not have any more dizziness upon discharge. She has been cleared by both EP and Cardiology for discharge home. The patient is back to normal baseline. On the day of discharge, vital signs stable, labs remained stable. The patient was seen and evaluated, examined thoroughly on the day of discharge and no other complaints. The patient verbalized understanding and agrees to plan of care to follow up accordingly as an outpatient with primary care physician in 1 week time. The patient is back to normal baseline without any complaints and has been cleared by both EP and Cardiology to discharge home. MEDICATIONS: See med reconciliation form, but we will discontinue the metoprolol on discharge. CONDITION: Stable. DIET: Heart healthy. In the event of any worsening symptoms, the patient was advised to come back to the ED for further evaluation. Discharge summary took greater than 35 minutes. MD DIONNA Hough/MODL /[id number]
== END 2018-05-26 14:27 | disposition home or self-care (01) | DRG 242 ==
LOC: ER 19:25 → ERHOLD 21:02 → ICU 21:49 → MED/SURG 05-24 14:48
PROVIDERS: ADMIT Internal Medicine; ATTEND Internal Medicine
PROC: 0JH606Z Insertion of Pacemaker, Dual Chamber into Chest Subcutaneous Tissue and Fascia, Open Approach (ICD-10-PCS; principal; 2018-05-22)
PROC: 02H63JZ Insertion of Pacemaker Lead into Right Atrium, Percutaneous Approach (ICD-10-PCS; 2018-05-22)
PROC: 02HK3JZ Insertion of Pacemaker Lead into Right Ventricle, Percutaneous Approach (ICD-10-PCS; 2018-05-22)
DX: I44.2 Atrioventricular block, complete (principal); I50.33 Acute on chronic diastolic (congestive) heart failure; I13.0 Hypertensive heart and chronic kidney disease with heart failure and stage 1 through stage 4 chronic kidney disease, or unspecified chronic kidney disease; E03.9 Hypothyroidism, unspecified; E11.22 Type 2 diabetes mellitus with diabetic chronic kidney disease; N18.9 Chronic kidney disease, unspecified; R53.81 Other malaise; E78.5 Hyperlipidemia, unspecified
CPT/HCPCS: 33208; 36415; 70450; 71045; 80048; 80053; 81001; 82550; 82553; 82948; 83036; 83880; 84443; 84484; 85025; 85610; 85730; 87086; 93005; 93306; 96372; 97139; 99284; J0360; J0690; J0696; J1650; J1940; J2001; J2250; J3370; J7030; J7040; J7050

== ENCOUNTER → 2019-04-17 | Outpatient (CLI) | payer MEDICARE ==
[~2019-04-17] MED LIST: CORICIDIN HBP1 EAC3 PO; DOXYCYCLINE HY100 MG PO; GLIPIZIDE ER5 MG PO; HYDRALAZINE HCL25 MG PO; LANTUS 3ML100 UNITS/ SC; LEVOTHYROXINE50 MCG PO; MECLIZINE HCL25 MG PO; METFORMIN HCL500 M2 PO; METOPROLOL SUCC50 MG PO
== END ==
LOC: RAD 07:28
PROVIDERS: ATTEND Internal Medicine
DX: R06.02 Shortness of breath (principal)
CPT/HCPCS: 93306

== ENCOUNTER 2019-07-13 22:25 | Emergency (ER) | payer MEDICARE, OTHER ==
[~2019-07-13] VITALS: Ht 157.5 cm; Wt 63.5 kg
--- OUTSIDE RECORDS SUMMARY | 2019-07-13 22:29 | XMS REPORT ---
Author Author [facility] t Organization [facility] [place], [place] Address [address] [facility] [address] [place] [address] Phone Unavailable Care Team Providers Care Crabber Name Role Phone Carla WELLS PCP Teri DIANE Attphys Unavailable Teri DIANE Admphys Unavailable Payers Payer Name Policy Type Policy Number Effective Date Expiration Date S peña Miscellaneous Indemnity [id number] 2003 00:00:[address] [facility] Medicare A & B [id number] 2002 00:00:00 [facility] Problems Condition Name Condition Details Condition Category Status Onset Date Resolution Date Last Treatment Date Treating Clinician Comments Source Bradycardia Bradycardia Problem Active [facility] Congestive heart failure CHF (congestive heart failure) Problem Active [facility] Dyspnea Dyspnea Problem Active [facility] Hypoxia Hypoxia Problem Active [facility] Urinary tract infection UTI (urinary tract infection) Problem Active [facility] Allergies, Adverse Reactions, Alerts Allergy Name Allergy Type Status Severity Reaction(s) Onset Date Inacti ve Date Treating Clinician Comments Source Penicillin Allergy to Substance Active Unknown 2018-05-23 00:00:00 [facility] Influenza Virus Vaccines Allergy to Substance Active Severe 2018-05-23 00:00:00 [facility] Penicillins DA Active PR 2018-05-06 00:00:00 [facility] FLU VACCINE DA Active PR 2018-05-06 00:00:00 [facility] No Known Allergies DA Active U 2017-09-07 00:00:00 [facility] Medications Ordered Medication Name Filled Medication Name Start Date Stop Da te Current Medication? Ordering Clinician Indication Dosage Frequency Signature (SIG) Comments Components Source Dextromethorphan Hbr/Chlor-Mal (Coricidin Hbp Cough & Cold Tab) 1 Each Tablet Dextromethorphan Hbr/Chlor-Mal (Coricidin Hbp Cough & Cold Tab) 1 Each Tablet Yes 1 Every 6 Hours as needed for Coug h [facility] Doxycycline Hyclate 100 Mg Capsule Doxycycline Hyclate 100 Mg Capsule Yes 100 Twice A Day [facility] Glipizide (Glipizide Er) 5 Mg Tab.er.24 Glipizide (Glipizide Er) 5 Mg Tab.er.24 Yes 10 Twice A Day [facility] Hydralazine Hcl 25 Mg Tab Hydralazine Hcl 25 Mg Tab Yes 100 Twice A Day [facility] Insulin Glargine (Lantus 3ML Pen) 100 Units/1 Ml Inj I nsulin Glargine (Lantus 3ML Pen) 100 Units/1 Ml Inj Yes 35 Bedtime [facility] Levothyroxine Sodium 50 Mcg Tablet Levothyroxine Sodium 50 Mcg Tablet Yes 50 Daily [facility] Meclizine Hcl 25 Mg Tablet Meclizine Hcl 25 Mg Tablet Yes 25 Three Times A Day [facility] Metformin Hcl (Metformin Hcl Er) 500 Mg Tab.er.24 Metf ormin Hcl (Metformin Hcl Er) 500 Mg Tab.er.24 Yes 500 Twice A Day [facility] Metoprolol Succinate 50 Mg Tab.er.24h, 200 Mg Oral Met oprolol Succinate 50 Mg Tab.er.24h, 200 Mg Oral 2018-05-26 00:00:00 No 200 Daily [facility] Procedures Procedure Date / Time Performed Performing Clinician [facility] e Computed tomography of brain without radiopaque contrast 201 10-28-28 00:00:00 ARJUN DIANE [facility] Encounters Start Date/Time End Date/Time En[facility] ID Source 2018-05-22 21:02:00 2018-05-26 14:27:00 Discharged Inpatient 1 ARJUN DIANE [facility] [id number] [facility] Results Test Description Test Time Test Comments Results Result Comments Source SCR MAMM BILATERAL IGGY CAD DIGITAL 2019-02-19 15:41:20 - SCR MAMM BILATERAL IGGY CAD DIGITALBILATERAL DIGITAL SCREENING MAMMOGRAM 3D/2D WITH CAD: 02/13/2019CLINICAL: Asymptomatic. Digital breast tomosynthesis was performed in addition to routine CC and MLO views. Current mammographic images were evaluated by either a Angle M-Vu or a Buddytrukgic ImageChecker CAD (computer aided detection system). Comparison is made to exams dated 11/15/2017 mammogram, 06/25 mammogram, and 06/05/2012 mammogram - [facility]. There are scattered fibroglandular tissues in both breasts. There are benign appearing secretory calcifications again noted in the in the central right breast, anterior depth. No new suspicious mass, architectural distortion, malignant type calcification, or lymph node abnormality detected. Breast architecture is stable compared to prior exams.IMPRESSION: BENIGNThere is no mammographic evidence of malignancy. Resume annual screening mammography in one year. Bailey Keller M.D. ar/:02/19/2019 15:41:20 Imaging Te chnologist: Deana SANTANA, [facility] sent: BIRADS 1-2 Normal Mammogram BI-RADS: 2 Benign Bedside Glucose 2018-05-26 12:28:00 Test Item Bedside Glucose (test code = 19758-6) 248 70-120 M[facility] ID: [id number] 2018-05-26 06:47:00* Test Item Value Reference Range Interpretation Comments Sodium Level (test code = 2951-2) 139 136-145 [facility]Potassium Igknh4583-96-38 06:47:00* Test Item Value Reference Range Interpretation Comments Potassium Level (test code = 2823-3) 3.9 3.5-5.1 [facility]Chloride Mcwrg6845-20-82 06:47:00* Test Item Value Reference Range Interpretation Comments Chloride Level (test code = 2075-0) 102 98-107 [facility] BrookCarbon Dioxide Psvut9517-04-33 06:47:00* Test Item Value Reference Range Interpretation Comments Carbon Dioxide Level (test code = 2028-9) 27 22-29 [facility] BrookAnion Det7053-02-43 06:47:00* Test Item Value Reference Range Interpretation Comments Anion Gap (test code = 39361-8) 13.9 8-16 [facility] BrookBlood Urea Tjwygfgz7938-10-26 06:47:00* Test Item Value Reference Range Interpretation Comments Blood Urea Nitrogen (test code = 3094-0) 27 7-26 [facility] BrookCreatinine2019-04-01 06:47:00* Test Item Value Reference Range Interpretation Comments Creatinine (test code = 2160-0) 1.19 0.57-1.11 [facility] BrookBUN/Creatinine Kscdl1543-15-15 06:47:00* Test Item Value Reference Range Interpretation Comments BUN/Creatinine Ratio (test code = 3097-3) 23 6-25 [facility] BrookEstimat Glomerular Filtration Rate 2018-05-26 06:47:00* Test Item Value Reference Range Interpretation Comments Estimat Glomerular Filtration Rate (test code = 436750086) 44 >60 Ranges were taken from the National Kidney Disease Education Program and the [facility] literature.Reference ranges:60 or greater: Lgxmlf08-35 ( for 3 consecutive months): Chronic kidney disease 15 or less: Kidney failureAdventHealth Rollins BrookGlucose Beqkv7704-49-28 06:47:00* Test Item Value Reference Range Interpretation Comments Glucose Level (test code = UXH9415) 171 74-118 [facility] BrookCalcium Kexcv9304-03-95 06:47:00* Test Item Value Reference Range Interpretation Comments Calcium Level (test code = 64106-9) 9.5 8.4-10.2 [facility] BrookWhite Blood Msrrw9780-68-76 06:36:00* Test Item Value Reference Range Interpretation Comments White Blood Count (test code = 6690-2) 6.92 4.8-10.8 [facility] BrookRed Blood Dccen0615-66-94 06:36:00* Test Item Value Reference Range Interpretation Comments Red Blood Count (test code = 789-8) 4.36 3.6-5.1 [facility] BrookHemoglobin2019-04-01 06:36:00* Test Item Value Reference Range Interpretation Comments Hemoglobin (test code = 17912-5) 12.9 12.0-16.0 [facility] BrookHematocrit2019-04-01 06:36:00* Test Item Value Reference Range Interpretation Comments Hematocrit (test code = 4544-3) 38.4 34.2-44.1 [facility] BrookMean Corpuscular Kubopg4711-94-11 06:36:00* Test Item Value Reference Range Interpretation Comments Mean Corpuscular Volume (test code = 787-2) 88.1 81-99 [facility] BrookMean Corpuscular Lmwruftlfn7689-59-81 06:36:00* Test Item Value Reference Range Interpretation Comments Mean Corpuscular Hemoglobin (test code = 785-6) 29.6 28-32 [facility] BrookMean Corpuscular Hemoglobin Concent 2018-05-26 06:36:00* Test Item Value Reference Range Interpretation Comments Mean Corpuscular Hemoglobin Concent (test code = 786-4) 33.6 31-35 [facility] BrookRed Cell Distribution Eeguz9496-24-39 06:36:00* Test Item Value Reference Range Interpretation Comments Red Cell Distribution Width (test code = 91107-3) 13.7 11.7 -14.4 [facility] BrookPlatelet Lurjv6832-05-54 06:36:00* Test Item Value Reference Range Interpretation Comments Platelet Count (test code = 777-3) 229 140-360 [facility] BrookNeutrophils (%) (Auto)2018-05-26 06:36:00 * Test Item Value Reference Range Interpretation Comments Neutrophils (%) (Auto) (test code = 82762-4) 57.9 38.7-80.0 [facility] BrookLymphocytes (%) (Auto)2018-05-26 06:36:00 * Test Item Value Reference Range Interpretation Comments Lymphocytes (%) (Auto) (test code = 736-9) 30.6 18.0-39.1 [facility] BrookMonocytes (%) (Auto)2018-05-26 06:36:00* Test Item Value Reference Range Interpretation Comments Monocytes (%) (Auto) (test code = 5905-5) 7.2 4.4-11.3 [facility] BrookEosinophils (%) (Auto)2018-05-26 06:36:00 * Test Item Value Reference Range Interpretation Comments Eosinophils (%) (Auto) (test code = 713-8) 2.7 0.0-6.0 [facility] BrookBasophils (%) (Auto)2018-05-26 06:36:00* Test Item Value Reference Range Interpretation Comments Basophils (%) (Auto) (test code = 706-2) 0.4 0.0-1.0 [facility] BrookIM GRANULOCYTES %2018-05-26 06:36:00* Test Item Value Reference Range Interpretation Comments IM GRANULOCYTES % (test code = IM GRANULOCYTES %) 1.2 0.0- 1.0 [facility] BrookNeutrophils # (Auto)2018-05-26 06:36:00* Test Item Value Reference Range Interpretation Comments Neutrophils # (Auto) (test code = 751-8) 4.0 2.1-6.9 [facility] BrookLymphocytes # (Auto)2018-05-26 06:36:00* Test Item Value Reference Range Interpretation Comments Lymphocytes # (Auto) (test code = 95624-6) 2.1 1.0-3.2 [facility] BrookMonocytes # (Auto)2018-05-26 06:36:00* Test Item Value Reference Range Interpretation Comments Monocytes # (Auto) (test code = 742-7) 0.5 0.2-0.8 [facility] BrookEosinophils # (Auto)2018-05-26 06:36:00* Test Item Value Reference Range Interpretation Comments Eosinophils # (Auto) (test code = 711-2) 0.2 0.0-0.4 [facility] BrookBasophils # (Auto)2018-05-26 06:36:00* Test Item Value Reference Range Interpretation Comments Basophils # (Auto) (test code = 704-7) 0.0 0.0-0.1 [facility] BrookAbsolute Immature Granulocyte (auto 2018-05-26 06:36:00* Test Item Value Reference Range Interpretation Comments Absolute Immature Granulocyte (auto (adele t code = Absolute Immature Granulocyte (auto) 0.08 0-0.1 [facility] BrookThyroid Stimulating Hormone (TSH) 2018-05-24 06:05:00* Test Item Value Reference Range Interpretation Comments Thyroid Stimulating Hormone (TSH) (test code = 92692-4) 3.139 0.350-4.940 [facility] BrookHemoglobin A1c Jpytmrs2757-58-39 05:26:00 * Test Item Value Reference Range Interpretation Comments Hemoglobin A1c Percent (test code = Hemoglobin A1c Percent) 8.4 4.0-7.0 [facility] BrookCT BRAIN ZP3852-04-95 21:09:00 [facility] [address] [address] Patient Name: BRADFORD VAN MR #: [id number] : 1935 Age/Sex: 82/F Req #: [id number] Adm Physician: ARJUN DIANE MD Ordered by: ARJUN DIANE MD Report #: [id number] Location: ICU Room/Bed: ICU 1921 Procedure: [id number] CT/CT BRAIN WO Exam Date: Exam Time: REPORT STATUS: Signed CT BRAIN WO HISTOR Y: Dizziness COMPARISON: None. Technique: Noncontrast axial scans were obtained from skull base to the vertex. Coronal and sagittal reconstruct ions obtained from the axial data. One or more of the following dose reductio n techniques were used: Automated exposure control, adjustment of the mA and/o r kV according to patient size, and/or utilization of iterative reconstruction technique. DISCUSSION: Scalp/Skull: Unremarkable. Brain sulci: Mild ly prominent. Ventricles: Compensatory dilatation. Extra-axial spaces: No ma sses or fluid collections. Carotid siphon calcifications are present. Par enchyma: Mild bilateral deep white matter hypodensity is likely chronic micro vascular ischemic change. Otherwise, no masses, hemorrhage, or large vascul ar territory acute infarct. Dural sinuses: No abnormal densities. Sellar /Suprasellar region: Intact. Skull base: Intact. Incidental findings: Both o cular lenses are thinned. IMPRESSION: 1. No acute intracranial abnormali ties. 2. Mild supratentorial chronic microvascular ischemic change. Mild gene ralized cerebral volume loss. Signed by: Dr. Jeffry Melton M.D. on 9:11 PM Dictated By: JEFFRY MELTON MD 10 Transcribed By: NADIRA on 05/23/1815 01 COPY TO: ARJUN DIANE MD Creatine Kinase [id number] 13:28:00* Test Item Value Reference Range Interpretation Comments Creatine Kinase MB (test code = 38621-0) 1.50 0-5.0 [facility] BrookTroponin D2231-15-07 13:28:00* Test Item Value Reference Range Interpretation Comments Troponin I (test code = SFD6457) 0.023 0-0.300 [facility] BrookCreatine Lthcta2109-25-69 13:19:00* Test Item Value Reference Range Interpretation Comments Creatine Kinase (test code = 2157-6) 35 29-168 [facility] BrookB-Type Natriuretic Nrnxqcs2349-23-50 07:41:00* Test Item Value Reference Range Interpretation Comments B-Type Natriuretic Peptide (test code = 15657-8) 1150.6 0-100 [facility] BrookTotal Upjyqoioi9585-22-90 05:46:00* Test Item Value Reference Range Interpretation Comments Total Bilirubin (test code = 1975-2) 1.8 0.2-1.2 [facility] BrookAspartate Amino Transf (AST/SGOT) 2018-05-23 05:46:00* Test Item Value Reference Range Interpretation Comments Aspartate Amino Transf (AST/SGOT) (test code = Aspartate Amino Transf (AST/SGOT)) 15 5-34 [facility] BrookAlanine Aminotransferase (ALT/SGPT) 2018-05-23 05:46:00* Test Item Value Reference Range Interpretation Comments Alanine Aminotransferase (ALT/SGPT) (test code = 1742-6) 25 0-55 [facility] BrookTotal Mixgsux0856-86-20 05:46:00* Test Item Value Reference Range Interpretation Comments Total Protein (test code = 2885-2) 6.7 6.5-8.1 [facility] BrookAlbumin2019-03-29 05:46:00* Test Item Value Reference Range Interpretation Comments Albumin (test code = 1751-7) 3.2 3.5-5.0 [facility] BrookGlobulin2019-03-29 05:46:00* Test Item Value Reference Range Interpretation Comments Globulin (test code = 79921-6) 3.5 2.3-3.5 [facility] BrookAlbumin/Globulin Arzsm1796-72-08 05:46:00 * Test Item Value Reference Range Interpretation Comments Albumin/Globulin Ratio (test code = 1759-0) 0.9 0.8-2.0 [facility] BrookAlkaline Avrwwvtdxsq7372-00-66 05:46:00* Test Item Value Reference Range Interpretation Comments Alkaline Phosphatase (test code = 6768-6) 83 40-150 [facility] BrookUrine WVX0381-20-01 20:14:00* Test Item Value Reference Range Interpretation Comments Urine WBC (test code = 5821-4) 11-20 0-5 [facility] BrookUrine GWC0048-65-01 20:14:00* Test Item Value Reference Range Interpretation Comments Urine RBC (test code = 84639-9) NONE 0-5 [facility] BrookUrine Tjgajcyr3467-72-68 20:14:00* Test Item Value Reference Range Interpretation Comments Urine Bacteria (test code = 05763-9) MODERATE NONE [facility] BrookUrine Epithelial Utrnh9306-29-73 20:14:00 * Test Item Value Reference Range Interpretation Comments Urine Epithelial Cells (test code = 65470-3) MODERATE NONE [facility] BrookUrine Renal Epithelial Wdnvb0804-33-65 20:14:00* Test Item Value Reference Range Interpretation Comments Urine Renal Epithelial Cells (test code = 40558-4) FEW NON E [facility] BrookCHEST SINGLE (PORTABLE)2018-05-22 20:06:00 [facility] [address] [place] [address] Patient Name: BRADFORD VAN MR #: [id number] : 1935 Age/Sex: 82/F Req #: [id number] Adm Physician: Ordered by: JENNIFFER FORBES MD Report #: [id number] Location: ER Room/Bed: Procedure: [id number] DX/CHEST SINGLE (PORTABLE) Exam Date: 05/22/18 Exam Time: 1949 REPORT STATUS: Sig marc EXAMINATION: CHEST SINGLE (PORTABLE) COMPARISON: None LUANA CATION: sob [id number] 1947 Y DISCUSSION: Frontal view of e chest obtained at 1946 hours. HEART AND MEDIASTINUM: The heart is mildly enlarged. The aorta is ectatic. Pulmonary vascular markings are prominent and indistinct LINES: None. LUNGS: Diffuse interstitial prominence. P atchy bibasilar airspace opacities PLEURA: There is blunting of the right lateral costophrenic angle and prominence of the minor fissure, either atelect asis or fluid BONES AND SOFT TISSUES: Degenerative changes of the spine. N o focal osseous lesions. The soft tissues are normal. IMPRESSION: C ardiomegaly and CHF. Bibasilar airspace opacities may represent atelectasis or pneumonia. Small right pleural effusion. Signed by: Dr. Sarahi romano MD on 05/22/2018 8:07 PM Dictated By: SARAHI OROURKE MD Electron ically Signed By: SARAHI OROURKE MD on 05/22/182006 Transcribed By: NADIRA on 05/22/182006 COPY TO: JENNIFFER FORBES MD Urine Color 2018-05-22 20:04:00* Test Item Value Reference Range Interpretation Comments Urine Color (test code = 5778-6) YELLOW YELLOW [facility] Yigotue5730-53-99 20:04:00* Test Item Value Reference Range Interpretation Comments Urine Clarity (test code = 28933-8) SL CLOUDY CLEAR [facility] BrookUrine Specific Qtowbog7024-90-28 20:04:00 * Test Item Value Reference Range Interpretation Comments Urine Specific [place] (test code = 5811-5) 1.015 1.010-1.02 5 [facility] BrookUrine uN6292-47-98 20:04:00* Test Item Value Reference Range Interpretation Comments Urine pH (test code = 69265-9) 5 5-7 [facility] Leukocyte Vcpyzftc1255-10-06 20:04:00* Test Item Value Reference Range Interpretation Comments Urine Leukocyte Esterase (test code = 5799-2) 1+ NEGATIVE [facility] BrookUrine Dmxfljq0462-30-88 20:04:00* Test Item Value Reference Range Interpretation Comments Urine Nitrite (test code = 48518-4) NEGATIVE NEGATIVE [facility] BrookUrine Vskbnuz5328-90-97 20:04:00* Test Item Value Reference Range Interpretation Comments Urine Protein (test code = 5804-0) 1+ NEGATIVE [facility] BrookUrine Glucose (UA)2018-05-22 20:04:00* Test Item Value Reference Range Interpretation Comments Urine Glucose (UA) (test code = 2349-9) NEGATIVE NEGATIVE [facility] BrookUrine Ecnbusy0518-14-72 20:04:00* Test Item Value Reference Range Interpretation Comments Urine Ketones (test code = 19654-8) NEGATIVE NEGATIVE [facility] Ascdbjlyqapb6508-27-24 20:04:00* Test Item Value Reference Range Interpretation Comments Urine Urobilinogen (test code = 70637-7) 0.2 0.2-1 [facility] BrookUrine Qbiewqgas4387-45-95 20:04:00* Test Item Value Reference Range Interpretation Comments Urine Bilirubin (test code = 1978-6) NEGATIVE NEGATIVE [facility] BrookUrine Ddkmd3317-18-83 20:04:00* Test Item Value Reference Range Interpretation Comments Urine Blood (test code = 56959-3) NEGATIVE NEGATIVE [facility] BrookProthrombin Puqe6482-38-26 20:03:00* Test Item Value Reference Range Interpretation Comments Prothrombin Time (test code = 5902-2) 13.3 11.9-14.5 [facility] BrookProthromb Time International Ratio 2018-05-22 20:03:00* Test Item Value Reference Range Interpretation Comments Prothromb Time International Ratio (test code = 6301-6) 0.96 Oral Anticoagulant Therapy INR Values:1. Low Intensity Therapy 1.5 - 2.02 . Moderate Intensity Therapy 2.0 - 3.03. High Intensity Therapy(1) 2.5 - 3. 54. High Intensity Therapy(2) 3.0 - 4.05. Panic Value INR > 5.0 [facility] BrookActivated Partial Thromboplast Time 2018-05-22 20:03:00* Test Item Value Reference Range Interpretation Comments Activated Partial Thromboplast Time (test code = 61650-7) 25.2 23.8-35.5 [facility] BrookGLUBED2019-03-13 12:39:00* Test Item Value Reference Range Interpretation Comments GLUBED (test code = GLUBED) 262 MG/DL 70-110 H Performed by certified degreaser operator at [facility] AFENXV1574-80-39 08:41:00* Test Item Value Reference Range Interpretation Comments GLUBED (test code = GLUBED) 183 MG/DL 70-110 H Performed by certified degreaser operator at [facility] CBC W/AUTO FUZA8566-69-52 08:33:00* Test Item Value Reference Range Interpretation Comments WHITE BLOOD CELL (test code = WBC) 7.00 x10 3/uL 4.5-11.0 N RED BLOOD CELL (test code = RBC) 3.94 x10 6/uL 3.54-5.02 N HEMOGLOBIN (test code = HGB) 11.8 g/dL 11.0-15.0 N HEMATOCRIT (test code = HCT) 34.4 % 33.0-45.0 N MEAN CELL VOLUME (test code = MCV) 87.3 fL 81.0-99.0 N MEAN CELL HGB (test code = MCH) 29.9 pg 27.0-33.0 N MEAN CELL HGB CONCETRATION (test code = MCHC) 34.3 g/dL 33.0-37. 0 N RED CELL DISTRIBUTION WIDTH CV (test code = RDW) 12.9 % 11.5- 14.5 N RED CELL DISTRIBUTION WIDTH SD (test code = RDW-SD) 40.5 fL 37 .0-54.0 N PLATELET COUNT (test code = PLT) 149 x10 3/uL 150-400 L MEAN PLATELET VOLUME (test code = MPV) 11.3 fL 7.0-9.0 H NEUTROPHIL % (test code = NT%) 61.7 % 56.0-77.0 N IMMATURE GRANULOCYTE % (test code = IG%) 1.3 % 0.0-2.0 N LYMPHOCYTE % (test code = LY%) 28.6 % 14.0-32.0 N MONOCYTE % (test code = MO%) 6.1 % 4.8-9.0 N EOSINOPHIL % (test code = EO%) 1.9 % 0.3-3.7 N BASOPHIL % (test code = BA%) 0.4 % 0.0-2.0 N NUCLEATED RBC % (test code = NRBC%) 0.0 % 0-0 N NEUTROPHIL # (test code = NT#) 4.32 x10 3/uL 2.0-7.6 N IMMATURE GRANULOCYTE # (test code = IG#) 0.09 x10 3/uL 0.00-0.03 H LYMPHOCYTE # (test code = LY#) 2.00 x10 3/uL 1.0-3.8 N MONOCYTE # (test code = MO#) 0.43 x10 3/uL 0.1-0.8 N EOSINOPHIL # (test code = EO#) 0.13 x10 3/uL 0.0-0.2 N BASOPHIL # (test code = BA#) 0.03 x10 3/uL 0.0-0.2 N NUCLEATED RBC # (test code = NRBC#) 0.00 x10 3/uL 0.0-0.1 N MANUAL DIFF REQUIRED (test code = MDIFF) NO BASIC METABOLIC [id number] 08:16:00* Test Item Value Reference Range Interpretation Comments SODIUM (test code = NA) 136 mEq/L 134-147 N POTASSIUM (test code = K) 3.0 mEq/L 3.4-5.0 L CHLORIDE (test code = CL) 101 mEq/L 100-108 N CARBON DIOXIDE (test code = CO2) 26 mEq/L 21-33 N ANION GAP (test code = GAP) 12 0-20 N GLUCOSE (test code = GLU) 161 mg/dL 70-110 H BLOOD UREA NITROGEN (test code = BUN) 25 mg/dL 7-18 H GLOMERULAR FILTRATION RATE (test code = GFR) 60.2 70-80 L Units of measure = ml/min/1.73 m2 CREATININE (test code = CREAT) 0.9 mg/dL 0.6-1.3 CALCIUM (test code = CA) 8.4 mg/dL 8.0-10.5 N THYROID STIMULATING [id number] 08:16:00* Test Item Value Reference Range Interpretation Comments THYROID STIMULATING HORMONE (test code = TSH) 3.32 0.42-5.4 7 Results in pat- International Units/mL [id number]-L0040-20-13 08:16:00* Test Item Value Reference Range Interpretation Comments TROPONIN-I (test code = TROPI) 0.033 ng/mL 0.000-0.045 N Negative: <= 0.045 Positive: >= 0.046 Correlation with serial results, other cardiac markers andclinical findings is necessary to determine the clinicalsignificance of this result. Results using different methodologies should not be comparedto one another as quantitative results may vary by method. [id number]-[id number] 02:41:00* Test Item Value Reference Range Interpretation Comments TROPONIN-I (test code = TROPI) 0.053 ng/mL 0.000-0.045 HH Negative: <= 0.045 Positive: >= 0.046 Correlation with serial results, other cardiac markers andclinical findings is necessary to determine the clinicalsignificance of this result. Results using different methodologies should not be comparedto one another as quantitative results may vary by method. COMMENTS: 3 troponins total (including troponin done in ED)LIPOPROTEIN LDL 2018-05-06 21:48:00* Test Item Value Reference Range Interpretation Comments LIPOPROTEIN LDL (test code = LDL) 95 mg/dL 0-100 N <100 [id number] NEAR OPTIMAL/ABOVE [id number] HIGH>DU=366 VERY HIGH*Guidelines provided by the National Cholesterol EducationProgram Adult Treatment Panel III [id number] 21:26:00* Test Item Value Reference Range Interpretation Comments TROPONIN-I (test code = TROPI) 0.046 ng/mL 0.000-0.045 H Negative: <= 0.045 Positive: >= 0.046 Correlation with serial results, other cardiac markers andclinical findings is necessary to determine the clinicalsignificance of this result. Results using different methodologies should not be comparedto one another as quantitative results may vary by method. COMMENTS: 3 troponins total (including troponin done in ED)[id number] 21:23:00* Test Item Value Reference Range Interpretation Comments GLUBED (test code = GLUBED) 114 MG/DL 70-110 H Performed by certified degreaser operator at [facility] B-TYPE NATRIURETIC [id number] 19:03:00* Test Item Value Reference Range Interpretation Comments B-TYPE NATRIURETIC PEPTIDE (test code = BNP) 13.9 PG/ML 0-100 N BASIC METABOLIC [id number] 18:18:00* Test Item Value Reference Range Interpretation Comments SODIUM (test code = NA) 127 mEq/L 134-147 L POTASSIUM (test code = K) 3.7 mEq/L 3.4-5.0 N CHLORIDE (test code = CL) 92 mEq/L 100-108 L CARBON DIOXIDE (test code = CO2) 24 mEq/L 21-33 N ANION GAP (test code = GAP) 15 0-20 N GLUCOSE (test code = GLU) 305 mg/dL 70-110 H BLOOD UREA NITROGEN (test code = BUN) 28 mg/dL 7-18 H GLOMERULAR FILTRATION RATE (test code = GFR) 39.4 70-80 L Units of measure = ml/min/1.73 m2 CREATININE (test code = CREAT) 1.3 mg/dL 0.6-1.3 N CALCIUM (test code = CA) 9.0 mg/dL 8.0-10.5 N CREATINE KINASE (CK)2018-05-06 18:18:00* Test Item Value Reference Range Interpretation Comments CREATINE KINASE (CK) (test code = CK) 133 35-232 N Result is in INTERNATIONAL UNITS/LITER THYROID STIMULATING [id number] 18:18:00* Test Item Value Reference Range Interpretation Comments THYROID STIMULATING HORMONE (test code = TSH) 2.55 0.42-5.4 7 N Results in pat- International Units/mL [id number] 18:18:00* Test Item Value Reference Range Interpretation Comments TROPONIN-I (test code = TROPI) 0.041 ng/mL 0.000-0.045 N Negative: <= 0.045 Positive: >= 0.046 Correlation with serial results, other cardiac markers andclinical findings is necessary to determine the clinicalsignificance of this result. Results using different methodologies should not be comparedto one another as quantitative results may vary by method. BASIC METABOLIC [id number] 18:13:00* Test Item Value Reference Range Interpretation Comments SODIUM (test code = NA) 127 mEq/L 134-147 L POTASSIUM (test code = K) 3.7 mEq/L 3.4-5.0 N CHLORIDE (test code = CL) 92 mEq/L 100-108 L CARBON DIOXIDE (test code = CO2) 24 mEq/L 21-33 N ANION GAP (test code = GAP) 15 0-20 N GLUCOSE (test code = GLU) 305 mg/dL 70-110 H BLOOD UREA NITROGEN (test code = BUN) 28 mg/dL 7-18 H GLOMERULAR FILTRATION RATE (test code = GFR) 39.4 70-80 L Units of measure = ml/min/1.73 m2 CREATININE (test code = CREAT) 1.3 mg/dL 0.6-1.3 N CALCIUM (test code = CA) 9.0 mg/dL 8.0-10.5 N CREATINE KINASE (CK)2018-05-06 18:13:00* Test Item Value Reference Range Interpretation Comments CREATINE KINASE (CK) (test code = CK) 133 35-232 N Result is in INTERNATIONAL UNITS/LITER THYROID STIMULATING [id number] 18:13:00* Test Item Value Reference Range Interpretation Comments THYROID STIMULATING HORMONE (test code = TSH) 0.42-5.4 7 [id number] 18:13:00* Test Item Value Reference Range Interpretation Comments TROPONIN-I (test code = TROPI) 0.041 ng/mL 0.000-0.045 N Negative: <= 0.045 Positive: >= 0.046 Correlation with serial results, other cardiac markers andclinical findings is necessary to determine the clinicalsignificance of this result. Results using different methodologies should not be comparedto one another as quantitative results may vary by method. URINALYSIS [id number] 18:11:00* Test Item Value Reference Range Interpretation Comments UA COLOR (test code = COLU) COLORLESS YEL/STRAW UA APPEARANCE (test code = APPU) CLEAR CLEAR UA GLUCOSE DIPSTICK (test code = DGLUU) 3+ NEGATIVE A UA BILIRUBIN DIPSTICK (test code = BILU) NEGATIVE NEGATIVE UA KETONE DIPSTICK (test code = KETU) NEGATIVE NEGATIVE UA SPECIFIC GRAVITY (test code = SGU) 1.003 1.005-1.030 L UA BLOOD DIPSTICK (test code = JESUS) NEGATIVE NEGATIVE UA PH DIPSTICK (test code = MATTHEW) 7.0 5.0-7.0 N UA PROTEIN DIPSTICK (test code = PROU) NEGATIVE NEGATIVE UA UROBILINIOGEN DIPSTICK (test code = URO) 0.2 mg/dL 0.2-1.0 UA NITRITE DIPSTICK (test code = KINSEY) NEGATIVE NEGATIVE UA LEUKOCYTE ESTERASE DIPSTICK (test code = LEUU) TRACE NEGA TIVE A UA WBC (test code = WBCU) 4-9 WBC/HPF 0-3 A UA RBC (test code = RBCU) 0-3 RBC/HPF 0-3 UA BACTERIA (test code = BACU) NONE SEEN /HPF NONE SEEN UA SQUAMOUS CELLS (test code = SQU) 0-5 /HPF NONE SEEN COMMENTS: Clean CatchPROTHROMBIN [id number] 18:11:00* Test Item Value Reference Range Interpretation Comments PROTHROMBIN TIME PATIENT (test code = PTP) 10.7 SECONDS 9.3-12.9 N INTERNATIONAL NORMAL RATIO (test code = INR) 1.0 0.8-1.2 N TARGET INR BY INDICATION Indication INR1. Prophylaxis [...] Infarction (to prevent recurrent infarct). THROMBOPLASTIN TIME [id number] 18:11:00* Test Item Value Reference Range Interpretation Comments THROMBOPLASTIN TIME PARTIAL (test code = PTT) 29.2 Seconds 25.0-39. 5 N Therapeutic Range: 61.8-83.8 Sec Effective 03/25/2013 DRUGS OF ABUSE SCREEN [id number] 18:09:00* Test Item Value Reference Range Interpretation Comments URN COCAINE (test code = COCAURN) NEGATIVE NEGATIVE URN CANNABINOIDS (test code = CANNABURN) NEGATIVE NEGATIVE URN AMPHETAMINE (test code = AMPHETURN) NEGATIVE NEGATIVE URN BARBITURATE (test code = BARBITURN) NEGATIVE NEGATIVE URN BENZODIAZEPINE (test code = BENZOURN) NEGATIVE NEGATIVE Cut-off value:200 ng/mL URN OPIATES (test code = OPIATURN) NEGATIVE NEGATIVE Cut-off value:2000 ng/mL URN PHENCYCLIDINE (PCP) (test code = PHENCURN) NEGATIVE NEGATIV E Cutoffs:Barbiturates 200 ng/mLBenzodiazepines 200 ng/mLTHC Cannabinoids 50 ng/mLOpiates(Morphine) 2000 ng/mLAmphetamine 1000 ng/mLCocaine 300 ng/mLPCP phencyclidine 25 ng/mL Unconfirmed screening results shouldnot be used for non-medical purposes. CBC W/AUTO [id number] 17:58:00* Test Item Value Reference Range Interpretation Comments WHITE BLOOD CELL (test code = WBC) 8.54 x10 3/uL 4.5-11.0 N RED BLOOD CELL (test code = RBC) 4.70 x10 6/uL 3.54-5.02 N HEMOGLOBIN (test code = HGB) 14.0 g/dL 11.0-15.0 N HEMATOCRIT (test code = HCT) 41.7 % 33.0-45.0 N MEAN CELL VOLUME (test code = MCV) 88.7 fL 81.0-99.0 N MEAN CELL HGB (test code = MCH) 29.8 pg 27.0-33.0 N MEAN CELL HGB CONCETRATION (test code = MCHC) 33.6 g/dL 33.0-37. 0 N RED CELL DISTRIBUTION WIDTH CV (test code = RDW) 13.0 % 11.5- 14.5 N RED CELL DISTRIBUTION WIDTH SD (test code = RDW-SD) 42.1 fL 37 .0-54.0 N PLATELET COUNT (test code = PLT) 163 x10 3/uL 150-400 N MEAN PLATELET VOLUME (test code = MPV) 11.4 fL 7.0-9.0 H NEUTROPHIL % (test code = NT%) 70.3 % 56.0-77.0 N IMMATURE GRANULOCYTE % (test code = IG%) 1.1 % 0.0-2.0 N LYMPHOCYTE % (test code = LY%) 22.2 % 14.0-32.0 N MONOCYTE % (test code = MO%) 4.8 % 4.8-9.0 N EOSINOPHIL % (test code = EO%) 1.2 % 0.3-3.7 N BASOPHIL % (test code = BA%) 0.4 % 0.0-2.0 N NUCLEATED RBC % (test code = NRBC%) 0.4 % 0-0 H NEUTROPHIL # (test code = NT#) 6.01 x10 3/uL 2.0-7.6 N IMMATURE GRANULOCYTE # (test code = IG#) 0.09 x10 3/uL 0.00-0.03 H LYMPHOCYTE # (test code = LY#) 1.90 x10 3/uL 1.0-3.8 N MONOCYTE # (test code = MO#) 0.41 x10 3/uL 0.1-0.8 N EOSINOPHIL # (test code = EO#) 0.10 x10 3/uL 0.0-0.2 N BASOPHIL # (test code = BA#) 0.03 x10 3/uL 0.0-0.2 N NUCLEATED RBC # (test code = NRBC#) 0.03 x10 3/uL 0.0-0.1 N MANUAL DIFF REQUIRED (test code = MDIFF) NO - CT HEAD/BRAIN W/O [id number] 17:01:00 Name: BRADFORD VAN [facility] : 1935 Age/S: 82 / F [address] [place] [address] Unit #: [id number] Loc: ESTEFANIA Grimes [address] Phys: LaurenceLeroy DO Acct: [id number] Dis Date: Status: REG ER PHONE #: [phone] Exam Date: 05/06/2018 1642 FAX #: [phone] Reason: Syncope EXAMS: CPT CODE: [id number] CT HEAD/BRAIN W/O CONT [address] HEAD INDICATION: Syncope. TECHNIQUE: Unenhanced [...] CTDI: DLP: Trnscb Date/T iliana: 05/06/2018 (1701) [email or web address] Orig Print D/T: S: 05/06 (2290) CTDI: DLP: PAGE 1 Si gned Report - XR CHEST 1 [id number] 16:26:00 FAX: Leroy Pérez DO [phone] Comfort: St: REG FAX: Blue Montano MD [phone] Name: BRADFORD VAN [facility] : 1935 Age/S: 82/F [address] [place], [place] [address] Unit #: [id number] Loc: [place] [address] Phys: Leroy Dang DO Acct: [id number] Dis Date: Status: REG ER PHONE #: [phone] Exam Date: 05/06/2018 1620 FAX #: [phone] Reason: near syncope EXAMS: CPT CODE: [id number] XR CHEST 1 V 64651 SINGLE VIEW RADIOGRAPH CHEST INDICATION: near syn [...] 1. No acute cardiopulmonary pr ocess. at 1079 Re ported and signed by: Ariel Bermeo D.O. CC: Leroy Dang DO; Blue Sánchez MD Technologist: Stacie Tanner RT(R) Trnscrd Date/Time/By: 05/06/2018 (9442) : By: [email or web address] Orig Print D/T: S: 05/06/2018 (1760) PAGE 1 Signed Report
--- NOTE | 2019-07-13 23:18 | Diagnostic Imaging Report ---
EXAMINATION: CHEST SINGLE (PORTABLE) INDICATION: Chest pain. COMPARISON: Chest radiograph 05/22/2018. FINDINGS: TUBES and LINES: Left-sided pacemaker with leads overlying the right atrium and right ventricle. Overlying EKG leads. LUNGS: Lungs are well inflated. Interval resolution of bibasilar airspace opacities. There is no evidence of pneumonia or pulmonary edema. PLEURA: No pleural effusion or pneumothorax. HEART AND MEDIASTINUM: The cardiomediastinal silhouette is unremarkable. There are atherosclerotic calcifications within the aorta. BONES AND SOFT TISSUES: No acute osseous lesion. Soft tissues are unremarkable. UPPER ABDOMEN: No free air under the diaphragm. IMPRESSION: No acute thoracic abnormality. Interval resolution of bibasilar airspace opacities. Signed by: Dr. Violetta Lewis MD on 07/13/2019 11:15 PM
[2019-07-13 23:45] LABS: BASOPHILS % 0.4 % (0.0-1.0); EOSINOPHILS # (AUTO) 0.2 (0.0-0.4); EOSINOPHILS % 2.2 % (0.0-6.0); HEMATOCRIT 35.9 % (34.2-44.1); HEMOGLOBIN 12.2 g/dL (12.0-16.0); LYMPHOCYTES % 25.1 % (18.0-39.1); MEAN CORPUSCULAR HEMOGLOBIN 27.9 pg (28-32); MONOCYTES # (AUTO) 0.6 (0.2-0.8); MONOCYTES % 6.8 % (4.4-11.3); NEUTROPHILS # (AUTO) 5.3 (2.1-6.9); NEUTROPHILS % 64.9 % (38.7-80.0); PLATELET COUNT 200 x10e3/uL (140-360); RED BLOOD COUNT 4.38 x10e6/uL (3.6-5.1); RED CELL DISTRIBUTION WIDTH 13.6 % (11.7-14.4)
[2019-07-13 23:51] LABS: CLARITY,URINE SL CLOUDY (CLEAR); COLOR,URINE YELLOW (YELLOW); LEUKOCYTE ESTERASE ,URINE TRACE (NEGATIVE); NITRITE,URINE NEGATIVE (NEGATIVE); PROTEIN,URINE DIPSTICK 2+ (NEGATIVE)
[2019-07-13 23:52] LABS: BILIRUBIN,URINE NEGATIVE (NEGATIVE); KETONES,URINE NEGATIVE (NEGATIVE); URINE UROBILINOGEN 0.2 mg/dL (0.2 - 1)
[2019-07-14] MEDS ORDERED: ACETAMIN/BUTALBITAL/CAFFEINE TAB PO ONE
[2019-07-14] MEDS ORDERED: HYDRALAZINE HCL 20 MG/ML VIAL IV ONE
[2019-07-14 00:01] LABS: BACTERIA,URINE FEW /HPF; EPITHELIAL CELLS,URINE FEW /LPF; TRANSITIONAL EPI CELLS,URINE MODERATE; WBC,URINE (MAN) >50 /HPF (0-5)
--- NOTE | 2019-07-14 00:04 | Diagnostic Imaging Report ---
History:Headache, hypertension Comparison studies:CT head 05/23/2018 Technique: Axial images were obtained from the skull base to the vertex. Coronal and sagittal images reconstructed from the axial data. Intravenous contrast: None Dose modulation, iterative reconstruction, and/or weight based adjustment of the mA/kV was utilized to reduce the radiation dose to as low as reasonably achievable. Findings: Scalp/skull: No abnormalities. Extra-axial spaces: No masses. No fluid collections. Brain sulci: Mildly prominent. Ventricles: Mild compensatory dilatation. No hydrocephalus. Parenchyma: Subtle hypodensities in the supratentorial white matter are small vessel ischemic changes. No masses, hemorrhage, acute or chronic cortical vascular insults. Sellar/suprasellar region: No abnormalities. Craniocervical junction: Patent foramen magnum. No Chiari one malformation. Incidental findings: Atherosclerotic calcifications in the carotid siphons . Impression: No acute abnormalities. Chronic findings: 1. Mild generalized volume loss. 2. Mild supratentorial white matter small vessel ischemic changes. Signed by: DR Antony Calvert M.D. on 07/14/2019 12:01 AM
[2019-07-14 00:07] LABS: ALANINE AMINOTRANSFERASE 18 IU/L (0-55); ALBUMIN 3.7 g/dL (3.5-5.0); ALBUMIN/GLOBULIN RATIO 1.1 (0.8-2.0); ALKALINE PHOSPHATASE 75 IU/L (40-150); ANION GAP 20.6 mmol/L (8-16); BLOOD UREA NITROGEN 12 mg/dL (7-26); BUN/CREATININE RATIO 16 (6-25); CALCIUM 9.6 mg/dL (8.4-10.2); CARBON DIOXIDE 21 mmol/L (22-29); CHLORIDE 102 mmol/L (98-107); CREATINE KINASE 53 IU/L (29-168); CREATININE, SERUM 0.77 mg/dL (0.57-1.11); EST GLOMERULAR FILTRATION RATE > 60 ML/MIN (60-); GLUCOSE 166 mg/dL (74-118); POTASSIUM 3.6 mmol/L (3.5-5.1); SODIUM 140 mmol/L (136-145)
--- NOTE | 2019-07-14 00:13 | Emergency Department Note ---
History of Present Illnes History of Present Illness Chief Complaint: Hypertension History of Present Illness This is a 83 year old female arrived to the ED with complaints of a headache that began because she was out in the sun- pt denies any numbness or weakness. Pt states she called 911 for her headache and when they arrived her blood pressure was high and told her to go to the ED. Chief Complaint Comment 83 Y/O FEMALE PT A&OX3 PRESENTS TO THE ER [facility]IA [email or web address] FROM HOME C/O HEADACHE ONSET THIS AFTERNOON AROUND 1600; PER EMS, ON ARRIVAL TO SCENE PT'S BP 223/110 AND WAS GIVEN 1.25MG OF ENALAPRIL; PT STATES HEADACHE HAS DECREASED SINCE MEDICATION GIVEN; CURRENT BP ON ARRIVAL TO ER WAS 194/81; PT DENIES CP OR SOB; DENIES DIZZINESS/LIGHTHEADEDNESS, N/V, BLURRED VISION OR TINNITUS; NAD NOTED AT THIS TIME; RESP EVEN/UNLABORED; 20G IV CATH PLACED IN RT HAND BY EMS PHARMACY CONSULTANT; PT ATTACHED TO CHIEF METER READER; EKG PERFORMED AND GIVEN TO ER MD FOR EVAL. Historian: Patient Arrival Mode: [facility] Staff Mechanical Engineer Required: No Onset (how long ago): hour(s) Radiation: non-radiation Severity: moderate Onset quality: gradual Timing of current episode: intermittent Progression: unchanged Relieving factors: none Associated symptoms: denies other symptoms Treatments prior to arrival: none Past Medical/Family History Physician Review I have reviewed the patient's past medical and family history. Any updates have been documented here. Past Medical History Recent Fever: No Clinical Suspicion of Infectio: No New/Unexplained Change in Ment: No Past Medical History: Hypertension, Diabetes, Hypothyroidism, Chronic Kidney Disease, Osteoarthritis Other Medical History: VERTIGO Past Surgical History: Appendectomy Other Surgery: Bone Marrow Donor Social History Smoking Cessation: Former smoker Alcohol Use: None Any Illegal Drug Use: No TB Exposure/Symptoms: No Physically hurt or threatened: No Other Last Tetanus: UNK Review of Systems Review of Systems Constitutional: no symptoms EENTM: no symptoms Cardiovascular: no symptoms Respiratory: no symptoms Gastrointestinal: no symptoms Genitourinary: no symptoms Musculoskeletal: no symptoms Neurological: no symptoms, headache; numbness, paresthesia, seizure, tingling, tremors, weakness Psychological: no symptoms Endocrine: no symptoms Hematological/Lymphatic: no symptoms Review of other systems All other systems reviewed and negative. Physical Exam Related Data Allergies: Coded Allergies: Influenza Virus Vaccines (Verified Allergy, Severe, 05/23/18) Penicillins (Verified Allergy, Unknown, 05/23/18) Triage Vital Signs Vital Signs Date Time Temp Pulse Resp B/P (MAP) Pulse Ox O2 Delivery O2 Flow Rate FiO2 07/13/19 22:39 98.7 90 16 194/81 99 Vital signs reviewed: Yes Physical Exam CONSTITUTIONAL Constitutional: well-developed, well-nourished HENT HENT: normocephalic, atraumatic, oropharynx clear/moist, nose normal HENT L/R: left ext ear normal, right ext ear normal EYES Eyes: PERRL, conjunctivae normal NECK Neck: ROM normal PULMONARY Pulmonary: effort normal, breath sounds normal CARDIOVASCULAR Cardiovascular: regular rhythm, heart sounds normal, capillary refill normal, normal rate GASTROINTESTINAL Abdominal: soft, nontender, bowel sounds normal GENITOURINARY Genitourinary: exam deferred SKIN Skin: warm, dry MUSCULOSKELETAL Musculoskeletal: ROM normal NEUROLOGICAL Neurological: alert, oriented x 3, no gross motor or sensory deficits PSYCHOLOGICAL Psychological: mood/affect normal, judgement normal Results Laboratory Result Diagram: 07/13/19 5048 Laboratory Laboratory Tests Test 07/13/19 23:20 White Blood Count 8.14 x10e3/uL (4.8-10.8) Red Blood Count 4.38 x10e6/uL (3.6-5.1) Hemoglobin 12.2 g/dL (12.0-16.0) Hematocrit 35.9 % (34.2-44.1) Mean Corpuscular Volume 82.0 fL (81-99) Mean Corpuscular Hemoglobin 27.9 pg (28-32) Mean Corpuscular Hemoglobin Concent 34.0 g/dL (31-35) Red Cell Distribution Width 13.6 % (11.7-14.4) Platelet Count 200 x10e3/uL (140-360) Neutrophils (%) (Auto) 64.9 % (38.7-80.0) Lymphocytes (%) (Auto) 25.1 % (18.0-39.1) Monocytes (%) (Auto) 6.8 % (4.4-11.3) Eosinophils (%) (Auto) 2.2 % (0.0-6.0) Basophils (%) (Auto) 0.4 % (0.0-1.0) Neutrophils # (Auto) 5.3 (2.1-6.9) Lymphocytes # (Auto) 2.0 (1.0-3.2) Monocytes # (Auto) 0.6 (0.2-0.8) Eosinophils # (Auto) 0.2 (0.0-0.4) Basophils # (Auto) 0.0 (0.0-0.1) Absolute Immature Granulocyte (auto 0.05 x10e3/uL (0-0.1) Urine Color Yellow (YELLOW) Urine Clarity Sl cloudy (CLEAR) Urine pH 6.5 (5 - 7) Urine Specific [place] 1.020 (1.010-1.025) Urine Protein 2+ (NEGATIVE) Urine Glucose (UA) 1+ (NEGATIVE) Urine Ketones Negative (NEGATIVE) Urine Blood Negative (NEGATIVE) Urine Nitrite Negative (NEGATIVE) Urine Bilirubin Negative (NEGATIVE) Urine Urobilinogen 0.2 mg/dL (0.2 - 1) Urine Leukocyte Esterase Trace (NEGATIVE) Urine RBC 6-10 /HPF (0-5) Urine WBC >50 /HPF (0-5) Urine Epithelial Cells Few /LPF (NONE) Urine Transitional Epithelial Cells Moderate (NONE) Urine Bacteria Few /HPF (NONE) Lab results reviewed: Yes Laboratory comments Laboratory Tests Test 07/13/19 23:20 White Blood Count 8.14 x10e3/uL (4.8-10.8) Red Blood Count 4.38 x10e6/uL (3.6-5.1) Hemoglobin 12.2 g/dL (12.0-16.0) Hematocrit 35.9 % (34.2-44.1) Mean Corpuscular Volume 82.0 fL (81-99) Mean Corpuscular Hemoglobin 27.9 pg (28-32) Mean Corpuscular Hemoglobin Concent 34.0 g/dL (31-35) Red Cell Distribution Width 13.6 % (11.7-14.4) Platelet Count 200 x10e3/uL (140-360) Neutrophils (%) (Auto) 64.9 % (38.7-80.0) Lymphocytes (%) (Auto) 25.1 % (18.0-39.1) Monocytes (%) (Auto) 6.8 % (4.4-11.3) Eosinophils (%) (Auto) 2.2 % (0.0-6.0) Basophils (%) (Auto) 0.4 % (0.0-1.0) Neutrophils # (Auto) 5.3 (2.1-6.9) Lymphocytes # (Auto) 2.0 (1.0-3.2) Monocytes # (Auto) 0.6 (0.2-0.8) Eosinophils # (Auto) 0.2 (0.0-0.4) Basophils # (Auto) 0.0 (0.0-0.1) Absolute Immature Granulocyte (auto 0.05 x10e3/uL (0-0.1) Urine Color Yellow (YELLOW) Urine Clarity Sl cloudy (CLEAR) Urine pH 6.5 (5 - 7) Urine Specific [place] 1.020 (1.010-1.025) Urine Protein 2+ (NEGATIVE) Urine Glucose (UA) 1+ (NEGATIVE) Urine Ketones Negative (NEGATIVE) Urine Blood Negative (NEGATIVE) Urine Nitrite Negative (NEGATIVE) Urine Bilirubin Negative (NEGATIVE) Urine Urobilinogen 0.2 mg/dL (0.2 - 1) Urine Leukocyte Esterase Trace (NEGATIVE) Urine RBC 6-10 /HPF (0-5) Urine WBC >50 /HPF (0-5) Urine Epithelial Cells Few /LPF (NONE) Urine Transitional Epithelial Cells Moderate (NONE) Urine Bacteria Few /HPF (NONE) Imaging Imaging results reviewed: Yes Impressions Impression: No acute abnormalities. Chronic findings: 1. Mild generalized volume loss. 2. Mild supratentorial white matter small vessel ischemic changes. IMPRESSION: No acute thoracic abnormality. Interval resolution of bibasilar airspace opacities. Signed by: Dr. Violetta Lewis MD on 07/13/2019 11:15 PM Diagnostics Tests Diagnostic test(s) reviewed: Yes Procedures 12 Lead ECG Interpretation Staff Mechanical Engineer: Interpreted by ED physician Prior NEWS ANALYST tracings: reviewed Rhythm: paced Rate: normal QRS axis: normal ST segments normal: Yes T waves normal: Yes Clinical Impression: non-specific ECG Critical Care Time Subsequent provider I assumed direction of critical care for this patient from another provider of my specialty. Assessment & Plan Assessment & Plan Problems: (1) Headache (2) Hypertension Reassessment Reassessment time: 01:00 Reassessment Pt re-evaluated at bedside, reports improvement of headache- denies any complaints. BP improved without the need of medications. Pt wished to be discharged home. Last Vital Signs Date Time Temp Pulse Resp B/P (MAP) Pulse Ox O2 Delivery O2 Flow Rate FiO2 07/13/19 23:47 80 12 172/75 99 07/13/19 22:39 98.7 Home Meds Active Scripts Butalb/Acetaminophen/Caffeine (Fioricet 50-300-40 mg Capsule) 1 Each Capsule, 1 TAB PO Q8HR PRN for HEADACHE, #12 Prov:JUMA VARELA DO 07/14/19 Reported Medications Doxycycline Hyclate (DOXYCYCLINE HYCLATE) 100 Mg Capsule, 100 MG PO BID, CAP 05/26/18 Dextromethorphan Hbr/Chlor-Mal (CORICIDIN HBP COUGH & COLD TAB) 1 Each Tablet, 1 TAB PO Q6HR PRN for COUGH 05/22/18 Insulin Glargine (LANTUS 3ML PEN) 100 Units/1 Ml Inj, 35 MG SC HS 05/22/18 Metformin Hcl (METFORMIN HCL ER) 500 Mg Tab.er.24, 500 MG PO BID, #60 TAB 05/22/18 Glipizide (GLIPIZIDE ER) 5 Mg Tab.er.24, 10 MG PO BID 05/22/18 Levothyroxine Sodium (LEVOTHYROXINE SODIUM) 50 Mcg Tablet, 50 MCG PO DAILY, #30 TAB 05/22/18 Hydralazine Hcl (HYDRALAZINE HCL) 25 Mg Tab, 100 MG PO BID, TAB 05/22/18 Meclizine Hcl (MECLIZINE HCL) 25 Mg Tablet, 25 G PO TID 05/22/18 Medications in the ED Acetaminophen/ Butalbital/ Caffeine 1 ea ONCE ONCE PO ; Start 07/14/19 at 0 0:00; Stop 07/14/19 at 00:01 Hydralazine HCl 5 mg ONCE ONCE IV ; Start 07/14/19 at 00:00; Stop 07/14/19 at 00:01; Status UNV JUMA VARELA DO July 13, 2019 23:57
[2019-07-14] MEDS ORDERED: FIORICET 50-301 EACH PO (01:19)
[2019-07-14 01:30] VITALS: BP 141/74
== END 2019-07-14 01:47 | disposition home or self-care (01) ==
LOC: ER 22:25
DX: R51 Headache (principal); I12.9 Hypertensive chronic kidney disease with stage 1 through stage 4 chronic kidney disease, or unspecified chronic kidney disease; E11.22 Type 2 diabetes mellitus with diabetic chronic kidney disease; N18.9 Chronic kidney disease, unspecified; E03.9 Hypothyroidism, unspecified
CPT/HCPCS: 36415; 70450; 71045; 80053; 81001; 82550; 82553; 83880; 84484; 85025; 93005; 99284; J0360

== ENCOUNTER → 2020-09-16 | Outpatient (CLI) | payer MEDICARE ==
[~2020-09-16] MED LIST changes: +FIORICET 50-301 EACH PO
== END ==
LOC: RAD 08:17
PROVIDERS: ATTEND Internal Medicine
DX: R42 Dizziness and giddiness (principal)
CPT/HCPCS: 93306; 93880

== ENCOUNTER 2020-10-13 08:44 | Emergency (ER) | payer MEDICARE, OTHER ==
[~2020-10-13] VITALS: Ht 157.5 cm; Wt 63.5 kg
[2020-10-13] MEDS ORDERED: PROAIR DIGIHAL90 MCG INH (10:16)
[2020-10-13] MEDS ORDERED: TESSALON PERLE100 MG PO (10:16)
[2020-10-13] MEDS ORDERED: PREDNISONE20 MG PO (10:16)
== END 2020-10-13 13:34 | disposition home or self-care (01) ==
LOC: ER 09:07
DX: J40 Bronchitis, not specified as acute or chronic (principal); E11.22 Type 2 diabetes mellitus with diabetic chronic kidney disease; I12.9 Hypertensive chronic kidney disease with stage 1 through stage 4 chronic kidney disease, or unspecified chronic kidney disease; N18.9 Chronic kidney disease, unspecified; Z79.4 Long term (current) use of insulin; E03.9 Hypothyroidism, unspecified; M19.90 Unspecified osteoarthritis, unspecified site; Z20.822 Contact with and (suspected) exposure to COVID-19; Z88.0 Allergy status to penicillin; Z88.7 Allergy status to serum and vaccine
CPT/HCPCS: 71045; 99283; U0002

== ENCOUNTER 2020-11-15 15:00 | Inpatient (IN) | payer MEDICARE, OTHER ==
[~2020-11-15] VITALS: Ht 157.5 cm; Wt 63.5 kg
[~2020-11-15 15:00] MED LIST changes: +PREDNISONE20 MG PO; +PROAIR DIGIHAL90 MCG INH; +TESSALON PERLE100 MG PO
[2020-11-15] MEDS ORDERED: ASPIRIN 81 MG CHEW TAB PO ONE ×2 (15:15→17:30)
[2020-11-15 15:45] LABS: BASOPHILS % 0.2 % (0.0-1.0); EOSINOPHILS # (AUTO) 0.1 (0.0-0.4); EOSINOPHILS % 1.4 % (0.0-6.0); HEMATOCRIT 35.4 % (34.2-44.1); LYMPHOCYTES # (AUTO) 1.2 (1.0-3.2); LYMPHOCYTES % 18.6 % (18.0-39.1); MEAN CORPUSCULAR HEMOGLOBIN 27.8 pg (28-32); MEAN CORPUSCULAR HGB CONC 33.9 g/dL (31-35); MEAN CORPUSCULAR VOLUME 81.9 fL (81-99); MONOCYTES # (AUTO) 0.5 (0.2-0.8); MONOCYTES % 7.5 % (4.4-11.3); NEUTROPHILS # (AUTO) 4.7 (2.1-6.9); NEUTROPHILS % 71.5 % (38.7-80.0); PLATELET COUNT 176 x10e3/uL (140-360); RED BLOOD COUNT 4.32 x10e6/uL (3.6-5.1); RED CELL DISTRIBUTION WIDTH 13.9 % (11.7-14.4)
[2020-11-15 16:00] LABS: INR 1.17; PROTHROMBIN TIME 15.1 seconds (11.9-14.5)
[2020-11-15 16:01] LABS: PARTIAL THROMBOPLASTIN TIME 31.5 seconds (23.8-35.5)
[2020-11-15 16:18] LABS: ALBUMIN 3.5 g/dL (3.5-5.0); ALBUMIN/GLOBULIN RATIO 1.1 (0.8-2.0); ANION GAP 20.9 mmol/L (8-16); CALCIUM 8.7 mg/dL (8.4-10.2); CREATININE, SERUM 1.2 mg/dL (0.57-1.11); MAGNESIUM 1.7 MG/DL (1.3-2.1)
[2020-11-15 16:19] LABS: POTASSIUM 2.9 mmol/L (3.5-5.1)
[2020-11-15 16:26] LABS: CREATINE KINASE MB 74.8 ng/mL (0-5.0); THYROID STIMULATING HORMONE 0.051 uIU/mL (0.350-4.940)
[2020-11-15] MEDS ORDERED: POTASSIUM CHLORIDE 20 MEQ TAB CR PO STA (17:08)
[2020-11-15] MEDS ORDERED: ONDANSETRON HCL INJ 2MG/ML 2ML 2 MG/ML VIAL IV PRN (17:30)
[2020-11-15] MEDS ORDERED: MORPHINE SULFATE INJ 4 MG/ML INJ 1ML IV PRN (17:30)
[2020-11-15] MEDS: SODIUM CHLORIDE 0.9% 1000ML 1,000 ML IV SCH (18:18)
[2020-11-15 18:47] LABS: CLARITY,URINE SL CLOUDY (CLEAR); COLOR,URINE STRAW (YELLOW); KETONES,URINE NEGATIVE (NEGATIVE); LEUKOCYTE ESTERASE ,URINE NEGATIVE (NEGATIVE); NITRITE,URINE NEGATIVE (NEGATIVE); PROTEIN,URINE DIPSTICK 2+ (NEGATIVE); URINE UROBILINOGEN 0.2 mg/dL (0.2 - 1)
[2020-11-15 18:58] LABS: AMORPHOUS SEDIMENT,URINE MODERATE (FEW); BACTERIA,URINE MODERATE /HPF; EPITHELIAL CELLS,URINE MODERATE /LPF
[2020-11-15 19:50] LABS: CREATINE KINASE MB 59.9 ng/mL (0-5.0)
[2020-11-16] MEDS: SODIUM CHLORIDE 0.9% 1000ML 1,000 ML IV SCH ×3 (01:08→18:23)
[2020-11-16 05:52] LABS: BASOPHILS % 0.2 % (0.0-1.0); EOSINOPHILS # (AUTO) 0.1 (0.0-0.4); EOSINOPHILS % 1.4 % (0.0-6.0); HEMATOCRIT 33.7 % (34.2-44.1); HEMOGLOBIN 11.4 g/dL (12.0-16.0); LYMPHOCYTES # (AUTO) 1.5 (1.0-3.2); LYMPHOCYTES % 25.8 % (18.0-39.1); MEAN CORPUSCULAR HEMOGLOBIN 27.9 pg (28-32); MEAN CORPUSCULAR HGB CONC 33.8 g/dL (31-35); MEAN CORPUSCULAR VOLUME 82.6 fL (81-99); MONOCYTES # (AUTO) 0.4 (0.2-0.8); MONOCYTES % 7.1 % (4.4-11.3); NEUTROPHILS # (AUTO) 3.6 (2.1-6.9); PLATELET COUNT 151 x10e3/uL (140-360); RED BLOOD COUNT 4.08 x10e6/uL (3.6-5.1)
[2020-11-16] MEDS ORDERED: DOCUSATE SODIUM 100 MG CAP PO PRN (06:15)
[2020-11-16 06:27] LABS: ALBUMIN 3.2 g/dL (3.5-5.0); ALBUMIN/GLOBULIN RATIO 1.1 (0.8-2.0); ANION GAP 14.1 mmol/L (8-16); CALCIUM 8.4 mg/dL (8.4-10.2); CREATININE, SERUM 1.05 mg/dL (0.57-1.11); MAGNESIUM 1.7 MG/DL (1.3-2.1); PHOSPHORUS 2.8 MG/DL (2.3-4.7); POTASSIUM 3.1 mmol/L (3.5-5.1)
[2020-11-16 07:16] LABS: CHOL/HDL RATIO 1.8 (3.0-3.6)
[2020-11-16] MEDS: LEVOTHYROXINE SODIUM 50 MCG TAB PO SCH (07:28)
[2020-11-16] MEDS: HYDRALAZINE HCL 100 MG TABLET PO SCH ×2 (09:38→17:00)
[2020-11-16 11:44] LABS: CREATINE KINASE MB 43.8 ng/mL (0-5.0)
[2020-11-16 17:50] VITALS: BP 142/76
[2020-11-16 19:37] VITALS: BP 140/63
[2020-11-16 19:51] VITALS: BP 140/63
[2020-11-16] MEDS ORDERED: ZOLPIDEM TARTRATE 5 MG TAB PO PRN (21:00)
[2020-11-16] MEDS: INSULIN GLARGINE 100 UNITS/ML VIAL SQ SCH (21:16)
[2020-11-17] VITALS: BP 133/65
[2020-11-17] MEDS: SODIUM CHLORIDE 0.9% 1000ML 1,000 ML IV SCH ×3 (02:15→17:21)
[2020-11-17] MEDS: LEVOTHYROXINE SODIUM 50 MCG TAB PO SCH (05:10)
[2020-11-17 05:19] LABS: BASOPHILS % 0.2 % (0.0-1.0); EOSINOPHILS # (AUTO) 0.1 (0.0-0.4); EOSINOPHILS % 1.4 % (0.0-6.0); HEMATOCRIT 33.3 % (34.2-44.1); HEMOGLOBIN 11.2 g/dL (12.0-16.0); LYMPHOCYTES # (AUTO) 1.4 (1.0-3.2); LYMPHOCYTES % 27.3 % (18.0-39.1); MEAN CORPUSCULAR HEMOGLOBIN 27.9 pg (28-32); MEAN CORPUSCULAR HGB CONC 33.6 g/dL (31-35); MEAN CORPUSCULAR VOLUME 82.8 fL (81-99); MONOCYTES # (AUTO) 0.3 (0.2-0.8); MONOCYTES % 6.6 % (4.4-11.3); NEUTROPHILS # (AUTO) 3.3 (2.1-6.9); NEUTROPHILS % 63.9 % (38.7-80.0); PLATELET COUNT 137 x10e3/uL (140-360); RED BLOOD COUNT 4.02 x10e6/uL (3.6-5.1); RED CELL DISTRIBUTION WIDTH 14.1 % (11.7-14.4)
[2020-11-17 05:49] VITALS: BP 140/63
[2020-11-17 06:07] LABS: ANION GAP 11.1 mmol/L (8-16); CALCIUM 7.7 mg/dL (8.4-10.2); POTASSIUM 3.1 mmol/L (3.5-5.1)
[2020-11-17 06:08] LABS: ALBUMIN 2.9 g/dL (3.5-5.0); BILIRUBIN,DIRECT 0.6 mg/dL (0.0-0.5)
[2020-11-17] MEDS: HYDRALAZINE HCL 100 MG TABLET PO SCH ×2 (07:54→16:26)
[2020-11-17 08:35] VITALS: BP 158/69
[2020-11-17] MEDS ORDERED: POTASSIUM CHLORIDE 20 MEQ TAB CR PO ONE (14:30)
[2020-11-17 20:00] VITALS: BP_SYST 164; BP_SYST 217; BP_DIAS 129; BP_DIAS 89
[2020-11-17] MEDS: INSULIN GLARGINE 100 UNITS/ML VIAL SQ SCH (21:00)
[2020-11-18] VITALS (7 sets, daily range): BP systolic 132–170; BP diastolic 68–88
[2020-11-18] MEDS: LEVOTHYROXINE SODIUM 50 MCG TAB PO SCH (06:18)
[2020-11-18] MEDS: SODIUM CHLORIDE 0.9% 1000ML 1,000 ML IV SCH ×3 (06:18→16:55)
[2020-11-18 07:52] LABS: BASOPHILS % 0.3 % (0.0-1.0); EOSINOPHILS # (AUTO) 0.1 (0.0-0.4); EOSINOPHILS % 1.5 % (0.0-6.0); HEMATOCRIT 36.3 % (34.2-44.1); HEMOGLOBIN 11.9 g/dL (12.0-16.0); LYMPHOCYTES # (AUTO) 1.6 (1.0-3.2); LYMPHOCYTES % 24.8 % (18.0-39.1); MEAN CORPUSCULAR HEMOGLOBIN 27.9 pg (28-32); MEAN CORPUSCULAR HGB CONC 32.8 g/dL (31-35); MEAN CORPUSCULAR VOLUME 85.2 fL (81-99); MONOCYTES # (AUTO) 0.6 (0.2-0.8); MONOCYTES % 8.8 % (4.4-11.3); NEUTROPHILS # (AUTO) 4.2 (2.1-6.9); NEUTROPHILS % 64.3 % (38.7-80.0); PLATELET COUNT 141 x10e3/uL (140-360); RED BLOOD COUNT 4.26 x10e6/uL (3.6-5.1); RED CELL DISTRIBUTION WIDTH 14.6 % (11.7-14.4)
[2020-11-18 08:10] LABS: ANION GAP 11.3 mmol/L (8-16); CALCIUM 8.3 mg/dL (8.4-10.2); CREATININE, SERUM 0.96 mg/dL (0.57-1.11); POTASSIUM 3.3 mmol/L (3.5-5.1)
[2020-11-18] MEDS: HYDRALAZINE HCL 100 MG TABLET PO SCH ×2 (09:00→16:03)
[2020-11-18] MEDS ORDERED: POTASSIUM CHLORIDE 20 MEQ TAB CR PO ONE (16:46)
[2020-11-18] MEDS: ACETAMINOPHEN 325 MG TAB PO PRN (16:53)
[2020-11-18] MEDS ORDERED: ACETAMINOPHEN 325 MG TAB PO PRN (17:00)
[2020-11-18] MEDS: INSULIN GLARGINE 100 UNITS/ML VIAL SQ SCH (21:00)
[2020-11-19] VITALS (8 sets, daily range): BP systolic 141–157; BP diastolic 70–80
[2020-11-19] MEDS: SODIUM CHLORIDE 0.9% 1000ML 1,000 ML IV SCH ×4 (05:06→21:34)
[2020-11-19] MEDS: LEVOTHYROXINE SODIUM 50 MCG TAB PO SCH (05:40)
[2020-11-19] MEDS: HYDRALAZINE HCL 100 MG TABLET PO SCH ×2 (08:49→17:08)
[2020-11-19] MEDS: INSULIN GLARGINE 100 UNITS/ML VIAL SQ SCH (21:34)
[2020-11-20] VITALS (8 sets, daily range): BP systolic 140–164; BP diastolic 61–95
[2020-11-20] MEDS: LEVOTHYROXINE SODIUM 50 MCG TAB PO SCH (05:48)
[2020-11-20] MEDS ORDERED: SODIUM CHLORIDE 0.9% 500ML 500 ML IV ONE (07:45)
[2020-11-20] MEDS ORDERED: POTASSIUM CHLORIDE 20 MEQ TAB CR PO STA (09:00)
[2020-11-20] MEDS: HYDRALAZINE HCL 100 MG TABLET PO SCH ×2 (09:02→16:05)
[2020-11-20] MEDS: SODIUM CHLORIDE 0.9% 1000ML 1,000 ML IV SCH ×3 (10:00→21:20)
[2020-11-20] MEDS: ACETAMINOPHEN 325 MG TAB PO PRN (16:12)
[2020-11-20] MEDS ORDERED: INSULIN LISPRO 100 UNIT/1 ML 3ML VIAL SQ SCH (20:30)
[2020-11-20] MEDS: INSULIN GLARGINE 100 UNITS/ML VIAL SQ SCH (21:12)
[2020-11-20] MEDS: METOPROLOL TARTRATE 25 MG TAB PO SCH ×2 (21:12→22:00)
[2020-11-21 00:19] VITALS: BP 135/66
[2020-11-21] MEDS: SODIUM CHLORIDE 0.9% 1000ML 1,000 ML IV SCH (06:00)
[2020-11-21] MEDS: LEVOTHYROXINE SODIUM 50 MCG TAB PO SCH (06:00)
[2020-11-21] MEDS: METOPROLOL TARTRATE 25 MG TAB PO SCH ×2 (06:00→14:00)
[2020-11-21 06:23] VITALS: BP 143/69
[2020-11-21 08:35] VITALS: BP 154/70
[2020-11-21 08:54] VITALS: BP 154/70
[2020-11-21] MEDS: HYDRALAZINE HCL 100 MG TABLET PO SCH (09:00)
[2020-11-21] MEDS ORDERED: POTASSIUM CHLORIDE 20 MEQ TAB CR PO ONE (10:25)
[2020-11-21] MEDS: INSULIN LISPRO 100 UNIT/1 ML 3ML VIAL SQ SCH ×2 (10:33→11:30)
[2020-11-21] MEDS ORDERED: ONDANSETRON HCL 4 MG ORAL DISINTEGRATING TAB PO PRN (10:45)
[2020-11-21 12:33] VITALS: BP 157/69
[2020-11-21] MEDS ORDERED: LOPRESSOR25 MG PO (13:16)
[2020-11-22] MEDS ORDERED: POTASSIUM CHLORIDE 20 MEQ TAB CR PO SCH (09:00)
== END 2020-11-21 15:50 | disposition home or self-care (01) | DRG 683 ==
LOC: ER 16:28 → ERHOLD 17:37 → MED/SURG3 11-16 16:03
PROVIDERS: ADMIT Internal Medicine; ATTEND Internal Medicine
DX: N17.9 Acute kidney failure, unspecified (principal); M62.82 Rhabdomyolysis; N39.0 Urinary tract infection, site not specified; I13.0 Hypertensive heart and chronic kidney disease with heart failure and stage 1 through stage 4 chronic kidney disease, or unspecified chronic kidney disease; I50.32 Chronic diastolic (congestive) heart failure; I44.2 Atrioventricular block, complete; I42.8 Other cardiomyopathies; E87.6 Hypokalemia; R74.01 Elevation of levels of liver transaminase levels; R20.2 Paresthesia of skin; N18.9 Chronic kidney disease, unspecified; E03.9 Hypothyroidism, unspecified; Z82.49 Family history of ischemic heart disease and other diseases of the circulatory system; Z88.0 Allergy status to penicillin; Z88.7 Allergy status to serum and vaccine; E66.9 Obesity, unspecified; Z68.25 Body mass index [BMI] 25.0-25.9, adult; E11.22 Type 2 diabetes mellitus with diabetic chronic kidney disease; Z95.0 Presence of cardiac pacemaker; T46.6X5A Adverse effect of antihyperlipidemic and antiarteriosclerotic drugs, initial encounter
CPT/HCPCS: 36415; 51700; 70450; 71045; 72100; 80048; 80053; 80061; 80076; 81001; 82550; 82553; 82948; 83036; 83605; 83735; 83880; 84100; 84132; 84443; 84484; 85025; 85610; 85730; 93005; 96361; 99251; 99284; J1815; J2270; J2405; J7030; U0002

== ENCOUNTER 2024-08-17 08:50 | Inpatient (IN) | payer MEDICARE, OTHER ==
[~2024-08-17] VITALS: Ht 160 cm; Wt 63.5 kg
[~2024-08-17 08:50] MED LIST changes: +LOPRESSOR25 MG PO
[2024-08-17 08:51] VITALS: TEMP 97.8
[2024-08-17 10:31] LABS: BASOPHILS % 0.3 % (0.0-1.0); EOSINOPHILS # (AUTO) 0.1 (0.0-0.4); EOSINOPHILS % 0.7 % (0.0-6.0); HEMATOCRIT 40.6 % (34.2-44.1); HEMOGLOBIN 14.6 g/dL (12.0-16.0); LYMPHOCYTES # (AUTO) 1.7 (1.0-3.2); LYMPHOCYTES % 12.4 % (18.0-39.1); MEAN CORPUSCULAR HEMOGLOBIN 30.2 pg (28-32); MEAN CORPUSCULAR VOLUME 84.1 fL (81-99); MONOCYTES # (AUTO) 0.7 (0.2-0.8); MONOCYTES % 5.2 % (4.4-11.3); NEUTROPHILS # (AUTO) 10.7 (2.1-6.9); NEUTROPHILS % 79.9 % (38.7-80.0); PLATELET COUNT 201 x10e3/uL (140-360); RED BLOOD COUNT 4.83 x10e6/uL (3.6-5.1); RED CELL DISTRIBUTION WIDTH 13.1 % (11.7-14.4); WHITE BLOOD COUNT 13.36 x10e3/uL (4.8-10.8)
[2024-08-17 11:37] LABS: ALBUMIN 3.8 g/dL (3.5-5.0); ALBUMIN/GLOBULIN RATIO 1.3 (0.8-2.0); ANION GAP 17.8 mmol/L (8-16); BILIRUBIN,TOTAL 1.4 mg/dL (0.2-1.2); CREATININE, SERUM 0.95 mg/dL (0.57-1.11); TOTAL PROTEIN 6.8 g/dL (6.5-8.1)
[2024-08-17 11:40] LABS: POTASSIUM 2.8 mmol/L (3.5-5.1)
[2024-08-17] MEDS ORDERED: IOPAMIDOL 370 MG/ML 100 ML INFUS..BTL INJ ONE (12:10)
[2024-08-17] MEDS: POTASSIUM CITRATE ER 10 MEQ TAB PO ONE (12:44)
[2024-08-17 13:21] LABS: CLARITY,URINE SL CLOUDY (CLEAR); COLOR,URINE YELLOW (YELLOW); GLUCOSE, URINE NEGATIVE (NEGATIVE); KETONES,URINE NEGATIVE (NEGATIVE); LEUKOCYTE ESTERASE ,URINE SMALL (NEGATIVE); NITRITE,URINE NEGATIVE (NEGATIVE); PH,URINE 6 (5 - 7); PROTEIN,URINE DIPSTICK NEGATIVE (NEGATIVE)
[2024-08-17 13:22] LABS: BILIRUBIN,URINE NEGATIVE (NEGATIVE); URINE UROBILINOGEN 0.2 mg/dL (0.2 - 1)
[2024-08-17] MEDS ORDERED: ONDANSETRON HCL INJ 2MG/ML 2ML 2 MG/ML VIAL IV PRN (13:30)
[2024-08-17 13:33] LABS: BACTERIA,URINE RARE /HPF; EPITHELIAL CELLS,URINE RARE /LPF; RBC,URINE >50 /HPF (0-5); WBC,URINE (MAN) 21-50 /HPF (0-5)
[2024-08-17] MEDS: METRONIDAZOLE 500MG/NS 100ML 100 ML IV SCH (13:37)
[2024-08-17] MEDS: SODIUM CHLORIDE 0.9% 1000ML 1,000 ML IV SCH (13:37)
[2024-08-17 14:52] VITALS: PULSE 70; RESP 18; O2SAT 97
[2024-08-17 16:00] VITALS: PULSE 67; RESP 13
[2024-08-17 20:15] VITALS: BP 157/68; PULSE 72; RESP 18; TEMP 97.9; O2SAT 100
[2024-08-17 20:31] VITALS: BP 157/68; PULSE 72; RESP 18; TEMP 97.9; O2SAT 100
[2024-08-17 21:00] VITALS: BP 157/68; PULSE 72; RESP 18; TEMP 97.9; O2SAT 100
[2024-08-17] MEDS ORDERED: TRESIBA FL100 UNIT/1 SQ (21:30)
[2024-08-17] MEDS ORDERED: ATORVASTATIN CA40 MG PO (21:30)
[2024-08-17] MEDS ORDERED: ISOSORBIDE MONO60 MG PO (21:30)
[2024-08-17] MEDS ORDERED: DILTIAZEM 24HR300 MG PO (21:30)
[2024-08-17] MEDS ORDERED: CARVEDILOL25 MG PO (21:30)
[2024-08-17] MEDS ORDERED: ARIMIDEX1 MG PO (21:30)
[2024-08-17] MEDS ORDERED: LISINOPRIL-HCT1 EAC1 PO (21:30)
[2024-08-17] MEDS ORDERED: LEVOTHYROXINE75 MCG PO (21:30)
[2024-08-18] VITALS (10 sets, daily range): BP systolic 105–157; BP diastolic 57–85; PULSE 71–93; RESP 16–20; TEMP 97.9–98.4; O2SAT 96–100
[2024-08-18 06:30] LABS: BASOPHILS % 0.3 % (0.0-1.0); EOSINOPHILS # (AUTO) 0.1 (0.0-0.4); EOSINOPHILS % 1.5 % (0.0-6.0); HEMATOCRIT 40.7 % (34.2-44.1); HEMOGLOBIN 14.1 g/dL (12.0-16.0); LYMPHOCYTES # (AUTO) 1.6 (1.0-3.2); LYMPHOCYTES % 17.6 % (18.0-39.1); MEAN CORPUSCULAR HEMOGLOBIN 30.6 pg (28-32); MEAN CORPUSCULAR HGB CONC 34.6 g/dL (31-35); MEAN CORPUSCULAR VOLUME 88.3 fL (81-99); MONOCYTES # (AUTO) 0.5 (0.2-0.8); MONOCYTES % 5.5 % (4.4-11.3); NEUTROPHILS # (AUTO) 6.8 (2.1-6.9); NEUTROPHILS % 74.1 % (38.7-80.0); PLATELET COUNT 185 x10e3/uL (140-360); RED BLOOD COUNT 4.61 x10e6/uL (3.6-5.1); RED CELL DISTRIBUTION WIDTH 13.3 % (11.7-14.4); WHITE BLOOD COUNT 9.11 x10e3/uL (4.8-10.8)
[2024-08-18 06:55] LABS: ANION GAP 13.9 mmol/L (8-16); CALCIUM 8.3 mg/dL (8.4-10.2); CREATININE, SERUM 0.78 mg/dL (0.57-1.11)
[2024-08-18 07:35] LABS: POTASSIUM 2.9 mmol/L (3.5-5.1)
[2024-08-18] MEDS ORDERED: MELATONIN 3 MG TAB PO PRN (07:45)
[2024-08-18] MEDS ORDERED: ALBUTEROL/IPRATROPIUM 3 ML NEB NEB PRN (07:45)
[2024-08-18] MEDS ORDERED: DEXTROSE 50% SYRINGE 50 ML IV PRN (07:45)
[2024-08-18 08:10] LABS: CHOL/HDL RATIO 1.6 (3.0-3.6)
[2024-08-18] MEDS: POTASSIUM CHLORIDE 10MEQ EA PO ONE ×2 (09:38→17:59)
[2024-08-18] MEDS: ATORVASTATIN 40 MG TAB PO SCH (09:38)
[2024-08-18] MEDS: ISOSORBIDE MONONITRATE 30 MG TAB CR PO SCH (09:39)
[2024-08-18] MEDS: CARVEDILOL 12.5 MG TAB PO SCH ×2 (09:40→21:31)
[2024-08-18] MEDS: HYDROCORTISONE ACETATE 25 MG/SUPP.RECT SUPP RC SCH (09:41)
[2024-08-18] MEDS: POTASSIUM CHLORIDE 10MEQ/100ML 100 ML IV ONE (09:41)
[2024-08-18] MEDS: ACETAMINOPHEN 325 MG TAB PO PRN (10:02)
[2024-08-18] MEDS: POTASSIUM CHLORIDE 20 MEQ TAB CR PO ONE (10:50)
[2024-08-18] MEDS: INSULIN REGULAR, HUMAN 100 UNIT/1 ML SQ SCH (12:30)
[2024-08-19] VITALS (9 sets, daily range): BP systolic 122–171; BP diastolic 61–82; PULSE 68–85; RESP 16–22; TEMP 97.5–98.5; O2SAT 95–100
[2024-08-19] MEDS: METOPROLOL TARTRATE INJ 1 MG/ML VIAL IV PRN (04:48)
[2024-08-19] MEDS: LEVOTHYROXINE SODIUM 75 MCG TAB PO SCH (09:07)
[2024-08-19] MEDS: CARVEDILOL 12.5 MG TAB PO SCH (09:08)
[2024-08-20] VITALS (11 sets, daily range): BP systolic 120–184; BP diastolic 63–92; PULSE 16–91; RESP 16–20; TEMP 97.3–98.7; O2SAT 95–100
[2024-08-20] MEDS ORDERED: PROPOFOL IV EMULSION 10 MG/ML 20 ML VIAL ONE (06:29)
[2024-08-20] MEDS ORDERED: FENTANYL CITRATE/PF 100MCG/2 ML INJ ONE (06:30)
[2024-08-20] MEDS ORDERED: SUCCINYLCHOLINE CHLORIDE 20 MG/ML 10ML VIAL ONE (06:37)
[2024-08-20] MEDS ORDERED: ROCURONIUM BROMIDE 0 ML IV ONE (06:39)
[2024-08-20] MEDS ORDERED: LIDOCAINE HCL 2% LOCAL INJ 5 ML SDV VIAL INJ ONE (06:39)
[2024-08-20] MEDS ORDERED: SUGAMMADEX SODIUM 200 MG/2 ML VIAL IV ONE (06:39)
[2024-08-20] MEDS ORDERED: GLYCOPYRROLATE INJ 0.2 MG/ML VIAL ONE (06:39)
[2024-08-20] MEDS ORDERED: DEXMEDETOMIDINE HCL 2 ML ONE (06:40)
[2024-08-20] MEDS ORDERED: SODIUM CHLORIDE 0.9% 100 ML ONE (06:41)
[2024-08-20] MEDS ORDERED: ONDANSETRON HCL INJ 2MG/ML 2ML 2 MG/ML VIAL IV PRN (07:45)
[2024-08-20] MEDS ORDERED: Morphine 4mg INJECTION 4 MG/ML INJ IV PRN (07:45)
[2024-08-20] MEDS: HYDRALAZINE HCL 20 MG/ML VIAL ONE (08:55)
[2024-08-20] MEDS: TRAMADOL HCL 50 MG TAB PO PRN (10:25)
[2024-08-20] MEDS: SODIUM CHLORIDE 0.9% 1000ML 1,000 ML IV SCH (11:26)
[2024-08-20] MEDS: LABETALOL HCL 5 MG/ML 20ML VIAL IV STA (12:11)
[2024-08-20] MEDS ORDERED: SEVOFLURANE INHAL SOLN 250 ML PEN BTL ONE (18:01)
[2024-08-21] VITALS: BP 142/64; PULSE 69; RESP 17; TEMP 98.2; O2SAT 98
[2024-08-21 04:00] VITALS: BP 155/67; PULSE 78; RESP 18; TEMP 98.2; O2SAT 100
[2024-08-21] MEDS ORDERED: ULTRAM 50MG50 MG PO (06:22)
[2024-08-21] MEDS ORDERED: TYLENOL325 MG PO (06:37)
[2024-08-21 07:30] VITALS: BP 184/6; PULSE 76; RESP 18; TEMP 98.2; O2SAT 100
[2024-08-21 07:32] LABS: BASOPHILS % 0.1 % (0.0-1.0); EOSINOPHILS # (AUTO) 0.1 (0.0-0.4); EOSINOPHILS % 0.5 % (0.0-6.0); HEMOGLOBIN 12.7 g/dL (12.0-16.0); LYMPHOCYTES % 10.8 % (18.0-39.1); MEAN CORPUSCULAR HEMOGLOBIN 30.1 pg (28-32); MEAN CORPUSCULAR HGB CONC 34.3 g/dL (31-35); MEAN CORPUSCULAR VOLUME 87.7 fL (81-99); MONOCYTES # (AUTO) 0.4 (0.2-0.8); NEUTROPHILS # (AUTO) 7.9 (2.1-6.9); NEUTROPHILS % 83.9 % (38.7-80.0); PLATELET COUNT 180 x10e3/uL (140-360); RED BLOOD COUNT 4.22 x10e6/uL (3.6-5.1); RED CELL DISTRIBUTION WIDTH 13.2 % (11.7-14.4); WHITE BLOOD COUNT 9.46 x10e3/uL (4.8-10.8)
[2024-08-21 07:50] VITALS: PULSE 73; RESP 18; O2SAT 98
[2024-08-21 07:52] LABS: ANION GAP 15.3 mmol/L (8-16); CREATININE, SERUM 0.98 mg/dL (0.57-1.11)
[2024-08-21 07:53] LABS: POTASSIUM 3.3 mmol/L (3.5-5.1)
[2024-08-21 08:18] VITALS: BP 184/76; PULSE 76; RESP 18; TEMP 98.2; O2SAT 100
[2024-08-21 08:55] VITALS: BP 184/76; PULSE 76
[2024-08-21] MEDS: SODIUM CHLORIDE 0.9% 1000ML 1,000 ML IV SCH (08:55)
== END 2024-08-21 11:07 | disposition home or self-care (01) | DRG 988 ==
LOC: ER 09:02 → ERHOLD 13:22 → MED/SURG2 15:55 → MED/SURG3 18:28
PROVIDERS: ADMIT Internal Medicine; ATTEND Internal Medicine
PROC: 0HBU0ZZ Excision of Left Breast, Open Approach (ICD-10-PCS; principal; 2024-08-20 07:09)
DX: A04.9 Bacterial intestinal infection, unspecified (principal); E87.1 Hypo-osmolality and hyponatremia; C50.912 Malignant neoplasm of unspecified site of left female breast; K59.00 Constipation, unspecified; E03.9 Hypothyroidism, unspecified; E11.22 Type 2 diabetes mellitus with diabetic chronic kidney disease; I12.9 Hypertensive chronic kidney disease with stage 1 through stage 4 chronic kidney disease, or unspecified chronic kidney disease; M19.90 Unspecified osteoarthritis, unspecified site; K64.8 Other hemorrhoids; N18.30 Chronic kidney disease, stage 3 unspecified; K76.0 Fatty (change of) liver, not elsewhere classified; E87.6 Hypokalemia; Z88.0 Allergy status to penicillin; Z79.4 Long term (current) use of insulin; Z79.84 Long term (current) use of oral hypoglycemic drugs; Z79.890 Hormone replacement therapy; Z79.51 Long term (current) use of inhaled steroids; Z88.7 Allergy status to serum and vaccine
CPT/HCPCS: 36415; 74177; 80048; 80053; 80061; 81001; 82948; 83036; 84132; 84484; 85025; 88304; 88307; 88342; 93005; 94799; 99252; 99284; J0330; J0360; J0696; J2003; J2470; J3480; J7030; J7050; Q9967

== ENCOUNTER 2024-10-10 11:08 | Observation (INO) | payer MEDICARE ==
[~2024-10-10] VITALS: Ht 160 cm; Wt 64.0 kg
[~2024-10-10 11:08] MED LIST changes: +ARIMIDEX1 MG PO; +ATORVASTATIN CA40 MG PO; +CARVEDILOL25 MG PO; +DILTIAZEM 24HR300 MG PO; +ISOSORBIDE MONO60 MG PO; +LEVOTHYROXINE75 MCG PO; +LISINOPRIL-HCT1 EAC1 PO; +TRESIBA FL100 UNIT/1 SQ; +TYLENOL325 MG PO; +ULTRAM 50MG50 MG PO
[2024-10-10 11:14] VITALS: TEMP 97.7
[2024-10-10] MEDS ORDERED: LOSARTAN-HCTZ1 EAC1 PO (11:26)
[2024-10-10 11:40] LABS: BASOPHILS % 0.1 % (0.0-1.0); EOSINOPHILS % 0.2 % (0.0-6.0); LYMPHOCYTES % 10.6 % (18.0-39.1); MONOCYTES % 4.1 % (4.4-11.3); NEUTROPHILS % 84.2 % (38.7-80.0); RED CELL DISTRIBUTION WIDTH 13.0 % (11.7-14.4)
[2024-10-10 11:57] LABS: EST GLOMERULAR FILTRATION RATE 43.0 ML/MIN (>=60)
[2024-10-10] MEDS: SODIUM CHLORIDE 0.9% 1000ML 1,000 ML IV ONE (11:57)
[2024-10-10] MEDS: ONDANSETRON HCL INJ 2MG/ML 2ML 2 MG/ML VIAL IV STA (11:57)
[2024-10-10 12:22] VITALS: PULSE 66; RESP 16
[2024-10-10 12:41] LABS: EPITHELIAL CELLS,URINE FEW /LPF; LEUKOCYTE ESTERASE ,URINE NEGATIVE (NEGATIVE); PROTEIN,URINE DIPSTICK NEGATIVE (NEGATIVE); URINE UROBILINOGEN 0.2 mg/dL (0.2 - 1); WBC,URINE (MAN) 0-5 /HPF (0-5)
[2024-10-10] MEDS ORDERED: ONDANSETRON HCL INJ 2MG/ML 2ML 2 MG/ML VIAL IV PRN (13:00)
[2024-10-10] MEDS: LACTATED RINGER'S 1,000 ML IV ONE (13:10)
[2024-10-10] MEDS ORDERED: MOUNJARO7.5 MG/0.5 SQ (13:50)
[2024-10-10] MEDS ORDERED: ASPIRIN81 MG PO (13:52)
[2024-10-10] MEDS ORDERED: VITAMIN D3 MA125 MCG PO (13:52)
[2024-10-10] MEDS ORDERED: ZYRTEC10 MG PO (13:56)
[2024-10-10] MEDS ORDERED: STOOL SOFTENER100 MG PO (13:56)
[2024-10-10] MEDS ORDERED: ZINC50 M2 PO (13:56)
[2024-10-10] MEDS ORDERED: SENNA LAX8.6 MG PO (13:56)
[2024-10-10] MEDS ORDERED: ALIGN1 EACH PO (13:56)
[2024-10-10] MEDS ORDERED: LIDOCAINE 4% PATCH TP PRN (14:00)
[2024-10-10] MEDS ORDERED: DOCUSATE SODIUM 100 MG CAP PO PRN (14:00)
[2024-10-10] MEDS ORDERED: ALBUTEROL/IPRATROPIUM 3 ML NEB NEB PRN (14:00)
[2024-10-10] MEDS ORDERED: ACETAMINOPHEN 325 MG TAB PO PRN (14:00)
[2024-10-10] MEDS ORDERED: BENZONATATE 100 MG CAP PO PRN (14:00)
[2024-10-10] MEDS ORDERED: DIPHENHYDRAMINE HCL 25 MG CAP PO PRN (14:00)
[2024-10-10] MEDS ORDERED: DEXTROSE 50% SYRINGE 50 ML IV PRN ×2 (14:00→16:45)
[2024-10-10] MEDS ORDERED: SIMETHICONE 80 MG CHEW PO PRN (14:00)
[2024-10-10] MEDS ORDERED: MELATONIN 5 MG TABLET PO PRN (14:00)
[2024-10-10] MEDS ORDERED: HYDRALAZINE HCL 20 MG/ML VIAL IV PRN (14:00)
[2024-10-10 14:30] VITALS: BP 149/58; PULSE 75; RESP 16; TEMP 97.5; O2SAT 99
[2024-10-10 14:31] VITALS: BP 149/58; PULSE 76; RESP 16; TEMP 95.7; O2SAT 98
[2024-10-10] MEDS: CARVEDILOL 12.5 MG TAB PO SCH (17:33)
[2024-10-10] MEDS: ENOXAPARIN SOD INJ 40 MG/0.4 ML SYR SC SCH (17:33)
[2024-10-10] MEDS: SODIUM CHLORIDE 0.9% 1000ML 1,000 ML IV SCH (17:34)
[2024-10-10 22:00] VITALS: BP 163/63; PULSE 72; RESP 18; TEMP 97.8; O2SAT 100
[2024-10-10] MEDS: INSULIN LISPRO 100 UNIT/1 ML 3ML VIAL SQ SCH (22:27)
[2024-10-10] MEDS: ATORVASTATIN 40 MG TAB PO SCH (22:28)
[2024-10-11] VITALS (9 sets, daily range): BP systolic 148–189; BP diastolic 60–76; PULSE 65–82; RESP 17–19; TEMP 97.8–98.7; O2SAT 96–100
[2024-10-11 06:21] LABS: BASOPHILS % 0.3 % (0.0-1.0); EOSINOPHILS % 0.6 % (0.0-6.0); LYMPHOCYTES % 24.6 % (18.0-39.1); MONOCYTES % 7.2 % (4.4-11.3); NEUTROPHILS % 66.7 % (38.7-80.0); RED CELL DISTRIBUTION WIDTH 13.2 % (11.7-14.4)
[2024-10-11 06:57] LABS: EST GLOMERULAR FILTRATION RATE 67.0 ML/MIN (>=60)
[2024-10-11] MEDS ORDERED: LEVOTHYROXINE SODIUM 75 MCG TAB PO SCH (07:30)
[2024-10-11] MEDS: LEVOTHYROXINE SODIUM 75 MCG TAB PO SCH (08:06)
[2024-10-11] MEDS: ASPIRIN 81 MG CHEW TAB PO SCH (08:06)
[2024-10-11] MEDS: PANTOPRAZOLE SOD 40 MG TABEC PO SCH (08:06)
[2024-10-11] MEDS: ANASTROZOLE 1 MG TAB PO SCH (08:06)
[2024-10-11] MEDS ORDERED: ENOXAPARIN SOD INJ 40 MG/0.4 ML SYR SC SCH (09:00)
[2024-10-11] MEDS ORDERED: SODIUM CHLORIDE 0.9% 1000ML 1,000 ML IV SCH (21:00)
[2024-10-12] VITALS: BP 134/71; PULSE 70; RESP 18; TEMP 97.7; O2SAT 100
[2024-10-12 04:00] VITALS: BP 158/85; PULSE 72; RESP 17; TEMP 97.5; O2SAT 100
[2024-10-12 06:30] VITALS: PULSE 72; RESP 20; O2SAT 98
[2024-10-12 07:17] LABS: EST GLOMERULAR FILTRATION RATE 71.0 ML/MIN (>=60)
[2024-10-12 07:46] VITALS: BP 143/85; PULSE 97; RESP 18; TEMP 97.6; O2SAT 100
[2024-10-12] MEDS: POTASSIUM CHLORIDE 20 MEQ TAB CR PO PRN (08:02)
[2024-10-12] MEDS: DILTIAZEM HCL 180 MG CAP ER PO SCH (08:03)
[2024-10-12] MEDS: DILTIAZEM HCL ER 120 MG CAP PO SCH (08:03)
[2024-10-12 08:05] VITALS: BP 143/85; PULSE 97; RESP 18; TEMP 97.6; O2SAT 100
[2024-10-12] MEDS ORDERED: DILTIAZEM HCL 300 MG PO SCH (09:00)
[2024-10-12] MEDS ORDERED: DILTIAZEM HCL ER 120 MG CAP PO SCH (09:00)
[2024-10-12 11:49] VITALS: BP 148/67; PULSE 76; RESP 18; TEMP 98.2; O2SAT 99
[2024-10-12] MEDS ORDERED: LOSARTAN POTAS100 MG PO (13:54)
== END 2024-10-12 14:53 | disposition home or self-care (01) ==
LOC: ER 11:12 → ERHOLD 12:49 → MED/SURG3 13:16
PROVIDERS: ADMIT Internal Medicine; ATTEND Internal Medicine
DX: E86.0 Dehydration (principal); N17.9 Acute kidney failure, unspecified; E11.65 Type 2 diabetes mellitus with hyperglycemia; Z79.4 Long term (current) use of insulin; E87.1 Hypo-osmolality and hyponatremia; Z85.3 Personal history of malignant neoplasm of breast; E11.22 Type 2 diabetes mellitus with diabetic chronic kidney disease; I12.9 Hypertensive chronic kidney disease with stage 1 through stage 4 chronic kidney disease, or unspecified chronic kidney disease; N18.9 Chronic kidney disease, unspecified; E03.9 Hypothyroidism, unspecified; M19.90 Unspecified osteoarthritis, unspecified site; Z95.810 Presence of automatic (implantable) cardiac defibrillator
CPT/HCPCS: 36415 ×3; 70450; 80048; 80053 ×2; 81001; 82948 ×2; 83036; 83690; 83735; 84443; 84484 ×3; 85025 ×2; 93005; 93880; 94799 ×2; 97161; 99283; G0378 ×3; J1650 ×2; J2405; J2470 ×2; J7030 ×2; J7121